=== PATIENT | male | born 1945 | race Caucasian/White ===

== ENCOUNTER 2019-01-16 16:39 | Emergency (ER) | payer MEDICARE, MEDICAID ==
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
--- NOTE | 2019-01-16 17:49 | RADIOLOGY REPORT (SQ) ---
EXAM DESCRIPTION: CT HEAD WITHOUT COMPLETED DATE/TIME: 01/16/2019 5:27 pm REASON FOR STUDY: trauma, fall, pain left side of head COMPARISON: None. TECHNIQUE: Axial images acquired through the brain without intravenous contrast. Images reviewed wi th bone, brain and subdural windows. Additional sagittal and coronal reconstructions were generated. Images stored on PACS. All CT scanners at this facility use dose modulation, iterative reconstruction, and/or weight based d osing when appropriate to reduce radiation dose to as low as reasonably achievable (ALARA). [facility]: Dose Right [facility]: CareDose [facility]: Dose Right [facility]: Teradose 4D [facility]: [employer] RADIATION DOSE: CT Rad equipment meets quality standard of care and radiation dose reduction techniq ues were employed. CTDIvol: 53.2 mGy. DLP: 964 mGy-cm. mGy. LIMITATIONS: None. FINDINGS: VENTRICLES: Normal size and contour. CEREBRUM: No masses. No hemorrhage. No midline shift. No evidence for acute infarction. Normal gra y/white matter differentiation. No areas of low density in the white matter. CEREBELLUM: No masses. No hemorrhage. No alteration of density. No evidence for acute infarction. EXTRAAXIAL SPACES: No fluid collections. No masses. ORBITS AND GLOBE: No intra- or extraconal masses. Normal contour of globe without masses. CALVARIUM: No fracture. PARANASAL SINUSES: No fluid or mucosal thickening. SOFT TISSUES: No mass or hematoma. OTHER: No other significant finding. IMPRESSION: No acute intracranial pathology. EVIDENCE OF ACUTE STROKE: NO. COMMENT: Quality ID # 436: Final reports with documentation of one or more dose reduction techniques (e.g., Automated exposure control, adjustment of the mA and/or kV according to patient size, use of iterative reconstruction technique) TECHNICAL DOCUMENTATION: JOB ID: [id number] [employer]- All Rights Reserved Reading location - IP/workstation name: [email or web address]
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
[2019-01-16 18:05] VITALS: BP 131/79
== END 2019-01-16 18:52 | disposition home or self-care (01) ==
LOC: ER 16:39
DX: S09.90XA Unspecified injury of head, initial encounter (principal); W19.XXXA Unspecified fall, initial encounter; Y92.129 Unspecified place in nursing home as the place of occurrence of the external cause; F17.200 Nicotine dependence, unspecified, uncomplicated; G20 Parkinson's disease
CPT/HCPCS: 70450; 72125; 99284

== ENCOUNTER 2019-02-16 10:27 | Emergency (ER) | payer MEDICARE, MEDICAID ==
[2019-02-16 10:57] LABS: ABSOLUTE EOSINOPHILS # (AUTO) 0.1 10^3/uL (0.0-0.6); ABSOLUTE LYMPHOCYTES (AUTO) 1.4 10^3/uL (0.5-4.7); ABSOLUTE MONOCYTES (AUTO) 0.3 10^3/uL (0.1-1.4); ABSOLUTE NEUT (AUTO) 2.6 10^3/uL (1.7-8.2); BASOPHILS % (AUTO) 0.5 % (0-2); EOSINOPHILS % (AUTO) 1.7 % (0-6); HEMATOCRIT 38.6 % (37.9-51.0); HEMOGLOBIN 13.4 g/dL (13.5-17.0); LYMPHOCYTES % (AUTO) 31.5 % (13-45); MEAN CORPUSCULAR HEMOGLOBIN 33.9 pg (27.0-33.4); MEAN CORPUSCULAR HGB CONC 34.8 g/dL (32.0-36.0); MEAN CORPUSCULAR VOLUME 98 fl (80-97); MONOCYTES % (AUTO) 7.1 % (3-13); PLATELET COUNT 164 10^3/uL (150-450); RED BLOOD COUNT 3.96 10^6/uL (4.35-5.55); RED CELL DISTRIBUTION WIDTH 13.4 % (11.5-14.0); SEGMENTED NEUTROPHILS % (AUTO) 59.2 % (42-78); TOTAL CELLS COUNTED % (AUTO) 100 %; WHITE BLOOD COUNT 4.4 10^3/uL (4.0-10.5)
[2019-02-16 11:09] LABS: APPEARANCE,URINE CLEAR; BILIRUBIN,URINE NEGATIVE (NEGATIVE); COLOR,URINE YELLOW; GLUCOSE, URINE NEGATIVE (NEGATIVE); KETONES,URINE TRACE mg/dL (NEGATIVE); LEUKOCYTE ESTERASE,URINE NEGATIVE (NEGATIVE); NITRITE,URINE NEGATIVE (NEGATIVE); PROTEIN,URINE NEGATIVE (NEGATIVE); URINE SPECIFIC GRAVITY 1.024
--- NOTE | 2019-02-16 11:17 | RADIOLOGY REPORT (SQ) ---
EXAM DESCRIPTION: CT HEAD WITHOUT COMPLETED DATE/TIME: 02/16/2019 11:07 am REASON FOR STUDY: AMS COMPARISON: 01/16/2019 TECHNIQUE: Axial images acquired through the brain without intravenous contrast. Images reviewed wi th bone, brain and subdural windows. Additional sagittal and coronal reconstructions were generated. Images stored on PACS. All CT scanners at this facility use dose modulation, iterative reconstruction, and/or weight based d osing when appropriate to reduce radiation dose to as low as reasonably achievable (ALARA). [facility]: Dose Right [facility]: CareDose [facility]: Dose Right [facility]: Teradose 4D [facility]: [employer] RADIATION DOSE: CT Rad equipment meets quality standard of care and radiation dose reduction techniq ues were employed. CTDIvol: 53.2 mGy. DLP: 1070 mGy-cm. mGy. LIMITATIONS: None. FINDINGS: VENTRICLES: Normal size and contour. CEREBRUM: No masses. No hemorrhage. No midline shift. No evidence for acute infarction. Normal gra y/white matter differentiation. No areas of low density in the white matter. CEREBELLUM: No masses. No hemorrhage. No alteration of density. No evidence for acute infarction. EXTRAAXIAL SPACES: No fluid collections. No masses. ORBITS AND GLOBE: No intra- or extraconal masses. Normal contour of globe without masses. CALVARIUM: No fracture. PARANASAL SINUSES: No fluid or mucosal thickening. SOFT TISSUES: No mass or hematoma. OTHER: No other significant finding. IMPRESSION: NORMAL BRAIN CT WITHOUT CONTRAST. EVIDENCE OF ACUTE STROKE: NO. COMMENT: Quality ID # 436: Final reports with documentation of one or more dose reduction techniques (e.g., Automated exposure control, adjustment of the mA and/or kV according to patient size, use of iterative reconstruction technique) TECHNICAL DOCUMENTATION: JOB ID: [id number] [employer]- All Rights Reserved Reading location - IP/workstation name: [email or web address]
[2019-02-16 11:18] LABS: ALKALINE PHOSPHATASE 69 U/L (38-126); ANION GAP 11 (5-19); ASPARTATE AMINO TRANSFERASE 20 U/L (17-59); BILIRUBIN,TOTAL 0.6 mg/dL (0.2-1.3); BLOOD UREA NITROGEN 16 mg/dL (7-20); CALCIUM 8.9 mg/dL (8.4-10.2); CARBON DIOXIDE 25 mmol/L (22-30); CHLORIDE 105 mmol/L (98-107); GLUCOSE 120 mg/dL (75-110); POTASSIUM 4.2 mmol/L (3.6-5.0); TOTAL PROTEIN 6.8 g/dL (6.3-8.2)
[2019-02-16 11:19] LABS: ACETAMINOPHEN < 10 ug/mL (10-30); ALCOHOL < 10 mg/dL (NONE DETECTED); SALICYLATE < 1.0 mg/dL (2.0-20.0)
[2019-02-16 11:23] LABS: URINE AMPHETAMINES SCREEN NEGATIVE; URINE BARBITURATES SCREEN NEGATIVE; URINE BENZODIAZEPINES SCREEN NEGATIVE; URINE COCAINE SCREEN NEGATIVE; URINE MARIJUANA (THC) SCREEN NEGATIVE; URINE METHADONE SCREEN NEGATIVE; URINE PHENCYCLIDINE SCREEN NEGATIVE
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
--- NOTE | 2019-02-16 20:56 | EKG REPORT ---
SEVERITY:- OTHERWISE NORMAL ECG - SINUS RHYTHM BORDERLINE LEFT AXIS DEVIATION : Confirmed by: Rubia Ruano MD 16-Feb-2019 20:55:00
[2019-02-16] MEDS ORDERED: ZINC OXIDE TP PRN (23:02)
[2019-02-16] MEDS ORDERED: COLD TP PRN (23:02)
[2019-02-16] MEDS ORDERED: LAN TP PRN (23:02)
[2019-02-16] MEDS ORDERED: [UNRECOGNIZED DRUG - OTHER] TP PRN (23:02)
[2019-02-16] MEDS ORDERED: LORAZEPAM 1 MG TABLET PO PRN (23:02)
[2019-02-16] MEDS: ACETAMINOPHEN 325 MG TABLET PO PRN (23:25)
[2019-02-16] MEDS ORDERED: DIVALPROEX SODIUM 500 MG TAB.SR.24H PO ONE (23:30)
[2019-02-16] MEDS ORDERED: CARBIDOPA/LEVODOPA 10-100 MG TABLET PO ONE (23:30)
[2019-02-16] MEDS ORDERED: MELATONIN 3 MG TABLET PO ONE (23:30)
[2019-02-16] MEDS ORDERED: CARBIDOPA/LEVODOPA 10-100 MG TABLET ONE (23:58)
[2019-02-17] MEDS: MEDROXYPROGESTERONE ACET 10 MG TABLET PO SCH (10:16)
[2019-02-17] MEDS: SERTRALINE HCL 50 MG TABLET PO SCH (10:16)
[2019-02-17] MEDS: CARBIDOPA/LEVODOPA 10-100 MG TABLET PO SCH ×3 (10:38→19:02)
[2019-02-17] MEDS: DIVALPROEX SODIUM 125 MG CAP.SPRINK PO SCH ×2 (10:39→17:49)
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
[2019-02-17] MEDS: DIVALPROEX SODIUM 500 MG TAB.SR.24H PO SCH (22:39)
[2019-02-17] MEDS: MELATONIN 3 MG TABLET PO SCH (22:40)
[2019-02-18] MEDS: MEDROXYPROGESTERONE ACET 10 MG TABLET PO SCH (09:51)
[2019-02-18] MEDS: SERTRALINE HCL 50 MG TABLET PO SCH (09:51)
[2019-02-18] MEDS: CARBIDOPA/LEVODOPA 10-100 MG TABLET PO SCH ×3 (09:51→18:56)
[2019-02-18] MEDS: DIVALPROEX SODIUM 125 MG CAP.SPRINK PO SCH ×2 (09:51→18:56)
--- NOTE | 2019-02-18 19:11 | ER Document Report ---
Doctor's Note Notes: 02/18/19 19:10 Rounds: From earlier today. Chart reviewed. Patient interviewed. Patient does not carry on a productive conversation. Vital signs are all normal. Lab studies are all essentially normal. Patient appears to be medically stable for transfer or discharge. Jaja Jones MD
[2019-02-18] MEDS: MELATONIN 3 MG TABLET PO SCH (22:43)
[2019-02-18] MEDS: DIVALPROEX SODIUM 500 MG TAB.SR.24H PO SCH ×2 (22:43→23:30)
[2019-02-19] MEDS: ACETAMINOPHEN 325 MG TABLET PO PRN ×2 (00:55→21:29)
[2019-02-19] MEDS: CARBIDOPA/LEVODOPA 10-100 MG TABLET PO SCH ×3 (09:50→19:04)
[2019-02-19] MEDS: SERTRALINE HCL 50 MG TABLET PO SCH (10:13)
[2019-02-19] MEDS: MEDROXYPROGESTERONE ACET 10 MG TABLET PO SCH (10:13)
[2019-02-19] MEDS: DIVALPROEX SODIUM 125 MG CAP.SPRINK PO SCH ×2 (10:13→19:04)
[2019-02-19] MEDS: MELATONIN 3 MG TABLET PO SCH (22:45)
[2019-02-19] MEDS: DIVALPROEX SODIUM 500 MG TAB.SR.24H PO SCH (22:45)
--- NOTE | 2019-02-20 09:36 | ER Document Report ---
Doctor's Note Notes: 02/20/19 09:36 Patient sent from the nursing care facility secondary to agitation. He was provided ketamine prior to transfer. Patient is currently calm with vital signs are stable. Labs unremarkable. Awaiting social work evaluation and placement.
[2019-02-20] MEDS: CARBIDOPA/LEVODOPA 10-100 MG TABLET PO SCH ×3 (10:22→17:54)
[2019-02-20] MEDS: SERTRALINE HCL 50 MG TABLET PO SCH (10:22)
[2019-02-20] MEDS: MEDROXYPROGESTERONE ACET 10 MG TABLET PO SCH (10:23)
[2019-02-20] MEDS: DIVALPROEX SODIUM 125 MG CAP.SPRINK PO SCH ×2 (10:23→17:54)
[2019-02-20] MEDS: DIVALPROEX SODIUM 500 MG TAB.SR.24H PO SCH (23:17)
[2019-02-20] MEDS: MELATONIN 3 MG TABLET PO SCH (23:17)
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
[2019-02-21] MEDS: MEDROXYPROGESTERONE ACET 10 MG TABLET PO SCH ×2 (09:55→17:33)
[2019-02-21] MEDS: SERTRALINE HCL 50 MG TABLET PO SCH (09:55)
[2019-02-21] MEDS: DIVALPROEX SODIUM 125 MG CAP.SPRINK PO SCH ×4 (09:55→17:32)
[2019-02-21] MEDS: CARBIDOPA/LEVODOPA 10-100 MG TABLET PO SCH ×3 (09:56→17:28)
[2019-02-21] MEDS: ACETAMINOPHEN 325 MG TABLET PO PRN (17:26)
--- NOTE | 2019-02-21 19:09 | ER Document Report ---
Doctor's Note Notes: 02/21/19 19:08 Nursing staff approached me concerning the patient had a choking episode during dinner. He was eating rice and chicken and began choking. Nurses state patient was coughing the whole time. He was able to clear the food he was choking on. Patient states he feels a scratchiness up high in his throat currently. He has been able to tolerate liquids since this episode. Lung sounds are clear. Patient oxygenating well on room air and in no acute respiratory distress. Recommend symptomatic monitoring.
[2019-02-21] MEDS: MELATONIN 3 MG TABLET PO SCH (21:44)
[2019-02-21] MEDS: DIVALPROEX SODIUM 500 MG TAB.SR.24H PO SCH (21:45)
[2019-02-22] MEDS: DIVALPROEX SODIUM 125 MG CAP.SPRINK PO SCH ×2 (10:27→17:18)
[2019-02-22] MEDS: MEDROXYPROGESTERONE ACET 10 MG TABLET PO SCH (10:28)
[2019-02-22] MEDS: CARBIDOPA/LEVODOPA 10-100 MG TABLET PO SCH ×3 (10:33→17:25)
[2019-02-22] MEDS: SERTRALINE HCL 50 MG TABLET PO SCH (10:33)
--- NOTE | 2019-02-22 19:36 | ER Document Report ---
Doctor's Note Notes: 02/22/19 19:35 Rounds: Chart reviewed and patient interviewed earlier today. Patient is stable. Vital signs are all essentially normal. Labs are also essentially normal. Patient appears to be medically stable for transfer or discharge. Jaja Jones MD
[2019-02-22] MEDS: DIVALPROEX SODIUM 500 MG TAB.SR.24H PO SCH (21:29)
[2019-02-22] MEDS: MELATONIN 3 MG TABLET PO SCH (21:30)
[2019-02-23] MEDS: MEDROXYPROGESTERONE ACET 10 MG TABLET PO SCH (10:00)
[2019-02-23] MEDS: DIVALPROEX SODIUM 125 MG CAP.SPRINK PO SCH ×2 (10:00→18:06)
[2019-02-23] MEDS: SERTRALINE HCL 50 MG TABLET PO SCH (10:00)
[2019-02-23] MEDS: CARBIDOPA/LEVODOPA 10-100 MG TABLET PO SCH ×3 (10:01→18:07)
--- NOTE | 2019-02-23 14:02 | ER Document Report ---
Doctor's Note Notes: 02/23/19 14:02 Rounds: Chart reviewed and patient interviewed, the patient does not carry on a conversation or answer questions or follow commands. No change in his condition. Vital signs are all normal. Patient appears to be medically stable for transfer or discharge. Jaja Jones MD
[2019-02-23] MEDS: MELATONIN 3 MG TABLET PO SCH (23:20)
[2019-02-23] MEDS: ACETAMINOPHEN 325 MG TABLET PO PRN (23:21)
[2019-02-23] MEDS: DIVALPROEX SODIUM 500 MG TAB.SR.24H PO SCH (23:22)
[2019-02-24] MEDS: CARBIDOPA/LEVODOPA 10-100 MG TABLET PO SCH ×3 (10:30→19:08)
[2019-02-24] MEDS: SERTRALINE HCL 50 MG TABLET PO SCH (10:46)
[2019-02-24] MEDS: MEDROXYPROGESTERONE ACET 10 MG TABLET PO SCH (10:46)
[2019-02-24] MEDS: DIVALPROEX SODIUM 125 MG CAP.SPRINK PO SCH ×2 (10:46→19:08)
[2019-02-24] MEDS: ACETAMINOPHEN 325 MG TABLET PO PRN (20:57)
[2019-02-24] MEDS: DIVALPROEX SODIUM 500 MG TAB.SR.24H PO SCH (22:54)
[2019-02-24] MEDS: MELATONIN 3 MG TABLET PO SCH (22:55)
[2019-02-25] MEDS: SERTRALINE HCL 50 MG TABLET PO SCH (09:54)
[2019-02-25] MEDS: MEDROXYPROGESTERONE ACET 10 MG TABLET PO SCH (09:54)
[2019-02-25] MEDS: CARBIDOPA/LEVODOPA 10-100 MG TABLET PO SCH ×3 (09:55→17:16)
[2019-02-25] MEDS: DIVALPROEX SODIUM 125 MG CAP.SPRINK PO SCH ×2 (10:14→17:16)
--- NOTE | 2019-02-25 11:11 | ER Document Report ---
Doctor's Note Notes: 02/25/19 11:09 I have evaluated this pt. this am and he has no c/o at this time. He feels all of his needs are being met and his physical exam is normal. He is awaiting disposition per mental health.
[2019-02-25] MEDS: DIVALPROEX SODIUM 500 MG TAB.SR.24H PO SCH (21:23)
[2019-02-25] MEDS: ACETAMINOPHEN 325 MG TABLET PO PRN (21:25)
[2019-02-25] MEDS: MELATONIN 3 MG TABLET PO SCH (21:26)
[2019-02-26] MEDS: DIVALPROEX SODIUM 125 MG CAP.SPRINK PO SCH ×2 (10:36→18:38)
[2019-02-26] MEDS: SERTRALINE HCL 50 MG TABLET PO SCH (10:36)
[2019-02-26] MEDS: MEDROXYPROGESTERONE ACET 10 MG TABLET PO SCH (10:36)
[2019-02-26] MEDS: CARBIDOPA/LEVODOPA 10-100 MG TABLET PO SCH ×3 (10:50→18:36)
--- NOTE | 2019-02-26 11:21 | ER Document Report ---
Doctor's Note Notes: 02/26/19 11:19 I have evaluated this pt. this am and he has no c/o at this time. We will have speech therapy assess this pt. for swallowing issues as I'm being told he needs to have his food cut into smaller pieces to bee able to swallow it. His physical exam is otherwise normal. He is awaiting placement per mental health.
[2019-02-26] MEDS: ACETAMINOPHEN 325 MG TABLET PO PRN (22:41)
[2019-02-26] MEDS: DIVALPROEX SODIUM 500 MG TAB.SR.24H PO SCH (22:42)
[2019-02-26] MEDS: MELATONIN 3 MG TABLET PO SCH (22:42)
--- NOTE | 2019-02-27 10:15 | ER Document Report ---
Doctor's Note Notes: 02/27/19 10:14 Rounds: Chart reviewed. Attempted to talk with patient and he does have more to say now than he did a few days ago when I was on duty. Answers questions appropriately when asked if he is getting enough food. Still difficult to understand exactly what he saying at times. Vital signs are all normal. No new labs to review. Patient is basically a social hold at this time, having been here since the 10th of this month, which is 11 days ago. Patient appears to be medically stable for transfer or discharge. Jaja Jones MD
[2019-02-27] MEDS: SERTRALINE HCL 50 MG TABLET PO SCH (10:45)
[2019-02-27] MEDS: DIVALPROEX SODIUM 125 MG CAP.SPRINK PO SCH ×2 (10:45→19:08)
[2019-02-27] MEDS: CARBIDOPA/LEVODOPA 10-100 MG TABLET PO SCH ×3 (10:45→19:08)
[2019-02-27] MEDS: MEDROXYPROGESTERONE ACET 10 MG TABLET PO SCH (10:45)
[2019-02-27] MEDS: MELATONIN 3 MG TABLET PO SCH (22:04)
[2019-02-27] MEDS: DIVALPROEX SODIUM 500 MG TAB.SR.24H PO SCH (23:05)
--- NOTE | 2019-02-28 09:54 | ER Document Report ---
Doctor's Note Notes: 02/28/19 09:53 Rounds: Chart reviewed. Patient sleeping so not disturbed. Vital signs remained stable. No labs to review. Patient is a social hold having been here since February 16. Looking for placement. Patient appears to be medically stable for transfer or discharge. Jaja Jones MD
[2019-02-28] MEDS: DIVALPROEX SODIUM 125 MG CAP.SPRINK PO SCH ×2 (10:09→18:41)
[2019-02-28] MEDS: SERTRALINE HCL 50 MG TABLET PO SCH (10:13)
[2019-02-28] MEDS: MEDROXYPROGESTERONE ACET 10 MG TABLET PO SCH (10:13)
[2019-02-28] MEDS: CARBIDOPA/LEVODOPA 10-100 MG TABLET PO SCH ×3 (10:15→18:42)
[2019-02-28] MEDS: MELATONIN 3 MG TABLET PO SCH (21:19)
[2019-02-28] MEDS: DIVALPROEX SODIUM 500 MG TAB.SR.24H PO SCH (21:20)
[2019-02-28] MEDS: ACETAMINOPHEN 325 MG TABLET PO PRN (21:33)
--- NOTE | 2019-03-01 10:35 | ER Document Report ---
Doctor's Note Notes: 03/01/19 10:30 I have evaluated this pt. this am and he has no c/o at this time. he feels all of his needs are being met and his physical exam is normal. His niece is in the room with him. He is awaiting placement per mental health.
[2019-03-01] MEDS: DIVALPROEX SODIUM 125 MG CAP.SPRINK PO SCH ×2 (10:45→18:24)
[2019-03-01] MEDS: MEDROXYPROGESTERONE ACET 10 MG TABLET PO SCH (10:51)
[2019-03-01] MEDS: CARBIDOPA/LEVODOPA 10-100 MG TABLET PO SCH ×3 (10:51→18:24)
[2019-03-01] MEDS: SERTRALINE HCL 50 MG TABLET PO SCH (10:51)
[2019-03-01] MEDS: MELATONIN 3 MG TABLET PO SCH (22:27)
[2019-03-01] MEDS: DIVALPROEX SODIUM 500 MG TAB.SR.24H PO SCH (22:42)
[2019-03-02] MEDS: CARBIDOPA/LEVODOPA 10-100 MG TABLET PO SCH ×3 (09:44→17:35)
[2019-03-02] MEDS: SERTRALINE HCL 50 MG TABLET PO SCH (09:44)
[2019-03-02] MEDS: MEDROXYPROGESTERONE ACET 10 MG TABLET PO SCH (09:44)
[2019-03-02] MEDS: DIVALPROEX SODIUM 125 MG CAP.SPRINK PO SCH ×2 (10:01→17:35)
--- NOTE | 2019-03-02 11:40 | ER Document Report ---
Doctor's Note Notes: 03/02/19 11:39 Rounds: Chart reviewed and patient sleeping so not interrupted. Patient has been here in this emergency department since February 16. He is a social hold at this time. His vital signs are all normal. Patient appears to be medically stable for transfer or discharge. Jaja Jones MD
[2019-03-02] MEDS: DIVALPROEX SODIUM 500 MG TAB.SR.24H PO SCH (21:21)
[2019-03-02] MEDS: MELATONIN 3 MG TABLET PO SCH (21:22)
--- NOTE | 2019-03-03 09:37 | ER Document Report ---
Doctor's Note Notes: 03/03/19 09:37 73-year-old male who is awaiting social placement. Vital signs are stable. We will repeat the patient's CBC and chemistry as requested by the social service coordinator to help with placement. Vital signs are stable. No acute complaints.
[2019-03-03] MEDS: DIVALPROEX SODIUM 125 MG CAP.SPRINK PO SCH ×2 (09:52→17:45)
[2019-03-03] MEDS: CARBIDOPA/LEVODOPA 10-100 MG TABLET PO SCH ×3 (09:56→18:46)
[2019-03-03] MEDS: SERTRALINE HCL 50 MG TABLET PO SCH (10:06)
[2019-03-03] MEDS: MEDROXYPROGESTERONE ACET 10 MG TABLET PO SCH (10:06)
[2019-03-03 12:23] LABS: ABSOLUTE EOSINOPHILS # (AUTO) 0.1 10^3/uL (0.0-0.6); ABSOLUTE LYMPHOCYTES (AUTO) 1.5 10^3/uL (0.5-4.7); ABSOLUTE MONOCYTES (AUTO) 0.3 10^3/uL (0.1-1.4); ABSOLUTE NEUT (AUTO) 3.9 10^3/uL (1.7-8.2); BASOPHILS % (AUTO) 0.3 % (0-2); EOSINOPHILS % (AUTO) 1.7 % (0-6); HEMATOCRIT 38.9 % (37.9-51.0); HEMOGLOBIN 13.4 g/dL (13.5-17.0); LYMPHOCYTES % (AUTO) 25.4 % (13-45); MEAN CORPUSCULAR HEMOGLOBIN 33.6 pg (27.0-33.4); MEAN CORPUSCULAR HGB CONC 34.5 g/dL (32.0-36.0); MEAN CORPUSCULAR VOLUME 97 fl (80-97); MONOCYTES % (AUTO) 5.2 % (3-13); PLATELET COUNT 144 10^3/uL (150-450); RED CELL DISTRIBUTION WIDTH 13.6 % (11.5-14.0); SEGMENTED NEUTROPHILS % (AUTO) 67.4 % (42-78); TOTAL CELLS COUNTED % (AUTO) 100 %; WHITE BLOOD COUNT 5.8 10^3/uL (4.0-10.5)
[2019-03-03 12:46] LABS: ANION GAP 9 (5-19); BLOOD UREA NITROGEN 21 mg/dL (7-20); CALCIUM 9.4 mg/dL (8.4-10.2); CARBON DIOXIDE 26 mmol/L (22-30); CHLORIDE 104 mmol/L (98-107); GLUCOSE 110 mg/dL (75-110); POTASSIUM 4.9 mmol/L (3.6-5.0)
[2019-03-03] MEDS: DIVALPROEX SODIUM 500 MG TAB.SR.24H PO SCH (21:14)
[2019-03-03] MEDS: MELATONIN 3 MG TABLET PO SCH (21:14)
[2019-03-04] MEDS: DIVALPROEX SODIUM 125 MG CAP.SPRINK PO SCH ×2 (09:09→18:37)
[2019-03-04] MEDS: SERTRALINE HCL 50 MG TABLET PO SCH (09:10)
[2019-03-04] MEDS: MEDROXYPROGESTERONE ACET 10 MG TABLET PO SCH (09:10)
[2019-03-04] MEDS: CARBIDOPA/LEVODOPA 10-100 MG TABLET PO SCH ×3 (09:11→18:42)
--- NOTE | 2019-03-04 19:10 | ER Document Report ---
Doctor's Note Notes: 03/04/19 19:08 73 yr old male who is here for a social hold, vital signs are stable. Patient is medically stable. Examination was normal. Repeat labs appear to be baseline. Planes by nursing staff.
[2019-03-04] MEDS: MELATONIN 3 MG TABLET PO SCH (22:11)
[2019-03-04] MEDS: DIVALPROEX SODIUM 500 MG TAB.SR.24H PO SCH (22:13)
--- NOTE | 2019-03-05 10:15 | ER Document Report ---
Doctor's Note Notes: 03/05/19 10:14 I have evaluated this pt. this am and he has no c/o at this time. He feels all of his needs are being met and his physical exam is normal. He is awaiting placement per mental health.
[2019-03-05] MEDS: SERTRALINE HCL 50 MG TABLET PO SCH (10:17)
[2019-03-05] MEDS: CARBIDOPA/LEVODOPA 10-100 MG TABLET PO SCH ×3 (10:17→18:24)
[2019-03-05] MEDS: DIVALPROEX SODIUM 125 MG CAP.SPRINK PO SCH ×2 (10:19→18:28)
[2019-03-05] MEDS: MEDROXYPROGESTERONE ACET 10 MG TABLET PO SCH (10:19)
[2019-03-05] MEDS: DIVALPROEX SODIUM 500 MG TAB.SR.24H PO SCH (21:38)
[2019-03-05] MEDS: MELATONIN 3 MG TABLET PO SCH (21:40)
[2019-03-06] MEDS: MEDROXYPROGESTERONE ACET 10 MG TABLET PO SCH (09:43)
[2019-03-06] MEDS: CARBIDOPA/LEVODOPA 10-100 MG TABLET PO SCH ×4 (09:43→18:56)
[2019-03-06] MEDS: SERTRALINE HCL 50 MG TABLET PO SCH ×2 (09:43→09:50)
[2019-03-06] MEDS: DIVALPROEX SODIUM 125 MG CAP.SPRINK PO SCH ×3 (09:43→18:59)
[2019-03-06] MEDS: DIVALPROEX SODIUM 500 MG TAB.SR.24H PO SCH (21:55)
[2019-03-06] MEDS: MELATONIN 3 MG TABLET PO SCH (22:26)
[2019-03-07] MEDS: MEDROXYPROGESTERONE ACET 10 MG TABLET PO SCH ×2 (09:27→09:30)
[2019-03-07] MEDS: CARBIDOPA/LEVODOPA 10-100 MG TABLET PO SCH ×3 (09:27→17:08)
[2019-03-07] MEDS: DIVALPROEX SODIUM 125 MG CAP.SPRINK PO SCH ×2 (09:27→17:08)
[2019-03-07] MEDS: SERTRALINE HCL 50 MG TABLET PO SCH (09:27)
--- NOTE | 2019-03-07 18:51 | ER Document Report ---
Doctor's Note Notes: 03/07/19 18:50 Patient remains in the emergency department as a social hold. Only complaint is that we are not giving him his daily cinnamon capsule. This is not something we carry in this hospital. Otherwise patient has no complaints. Patient will remain as a social hold. Environmental therapy has been ordered to make sure that he does continue to ambulate and does not get significantly deconditioned. GENERAL: Alert, interacts well. No acute distress. HEAD: Normocephalic, atraumatic EYES: Pupils equal, round and reactive to light, extraocular movements intact. ENT: Oral mucosa moist, tongue midline. NECK: Full range of motion, supple, trachea midline. LUNGS: no respiratory distress. Ear to auscultation bilaterally Heart: Giller rate and rhythm with no murmurs gallops or rubs. EXTREMITIES: Moves all 4 extremities spontaneously, no edema. No cyanosis. NEUROLOGICAL: Alert, normal speech. PSYCH: Normal mood, normal affect. SKIN: Warm, Dry, normal turgor
[2019-03-07] MEDS: DIVALPROEX SODIUM 500 MG TAB.SR.24H PO SCH (21:51)
[2019-03-08] MEDS: MELATONIN 3 MG TABLET PO SCH ×2 (01:38→21:33)
[2019-03-08] MEDS: MEDROXYPROGESTERONE ACET 10 MG TABLET PO SCH (09:36)
[2019-03-08] MEDS: SERTRALINE HCL 50 MG TABLET PO SCH (09:36)
[2019-03-08] MEDS: DIVALPROEX SODIUM 125 MG CAP.SPRINK PO SCH ×2 (09:37→18:16)
[2019-03-08] MEDS: CARBIDOPA/LEVODOPA 10-100 MG TABLET PO SCH ×3 (09:41→18:17)
--- NOTE | 2019-03-08 18:51 | ER Document Report ---
Doctor's Note Notes: 03/08/19 18:48 At this time the patient is sitting semi-upright in his bed watching TV. He does not have any specific complaints other than lifting his arms and hands up telling me he wants to be able to move. My understanding from reviewing the records is that he is still waiting for long-term placement, however the last case operator note was from 03/03/2019 and that indicated they were waiting to hear back from [facility].
[2019-03-08] MEDS: DIVALPROEX SODIUM 500 MG TAB.SR.24H PO SCH (21:32)
[2019-03-09] MEDS: CARBIDOPA/LEVODOPA 10-100 MG TABLET PO SCH ×3 (10:09→18:56)
[2019-03-09] MEDS: MEDROXYPROGESTERONE ACET 10 MG TABLET PO SCH (10:17)
[2019-03-09] MEDS: SERTRALINE HCL 50 MG TABLET PO SCH (10:17)
[2019-03-09] MEDS: DIVALPROEX SODIUM 125 MG CAP.SPRINK PO SCH ×2 (10:17→18:57)
--- NOTE | 2019-03-09 14:32 | ER Document Report ---
Doctor's Note Notes: 03/09/19 14:30 Patient states that he feels okay. Has been resting in bed. PHYSICAL EXAMINATION: GENERAL: Appears chronically ill, no acute distress. HEAD: Normocephalic, atraumatic. LUNGS: Equal breath sounds bilaterally and clear to auscultation. No wheezes rales or rhonchi. CARDIOVASCULAR: S1-S2, regular rate, regular rhythm. Radial pulses 2+, normal. ABDOMEN: Normoactive bowel sounds. Soft, nontender, no guarding, no rebound tenderness, and no masses palpated. PSYCH: Normal mood, normal affect. Plan discussed with LISSY Murdock, case packer. Patient is waiting for placement.
[2019-03-09] MEDS: MELATONIN 3 MG TABLET PO SCH (22:07)
[2019-03-09] MEDS: DIVALPROEX SODIUM 500 MG TAB.SR.24H PO SCH (22:13)
[2019-03-10] MEDS: DIVALPROEX SODIUM 125 MG CAP.SPRINK PO SCH ×2 (09:57→18:22)
[2019-03-10] MEDS: CARBIDOPA/LEVODOPA 10-100 MG TABLET PO SCH ×3 (09:58→18:19)
[2019-03-10] MEDS: SERTRALINE HCL 50 MG TABLET PO SCH (09:59)
[2019-03-10] MEDS: MEDROXYPROGESTERONE ACET 10 MG TABLET PO SCH (09:59)
--- NOTE | 2019-03-10 21:58 | ER Document Report ---
Doctor's Note Notes: 03/10/19 18:30 Patient states that he feels okay. Has been resting in bed. PHYSICAL EXAMINATION: GENERAL: Appears chronically ill, no acute distress. HEAD: Normocephalic, atraumatic. LUNGS: Equal breath sounds bilaterally and clear to auscultation. No wheezes rales or rhonchi. CARDIOVASCULAR: S1-S2, regular rate, regular rhythm. Radial pulses 2+, normal. ABDOMEN: Normoactive bowel sounds. Soft, nontender, no guarding, no rebound tenderness, and no masses palpated. PSYCH: Normal mood, normal affect. SKIN: Blanchable redness noted to coccyx. Allyven dressing place to coccyx RN and myself. Plan discussed with LISSY Murdock, patient case coordinator. Patient is still waiting for placement. Nurse has reported to me that the patient has been refusing his medications. I had recommended that she crush the medications and put them in his applesauce. According to the nurse, the patient still refused his medication.
[2019-03-10] MEDS: DIVALPROEX SODIUM 500 MG TAB.SR.24H PO SCH (22:44)
[2019-03-10] MEDS: MELATONIN 3 MG TABLET PO SCH (22:44)
[2019-03-11] MEDS: MELATONIN 3 MG TABLET PO SCH ×2 (02:49→21:34)
[2019-03-11] MEDS: CARBIDOPA/LEVODOPA 10-100 MG TABLET PO SCH ×3 (09:52→18:15)
[2019-03-11] MEDS: MEDROXYPROGESTERONE ACET 10 MG TABLET PO SCH (09:52)
[2019-03-11] MEDS: DIVALPROEX SODIUM 125 MG CAP.SPRINK PO SCH ×2 (09:52→18:50)
[2019-03-11] MEDS: SERTRALINE HCL 50 MG TABLET PO SCH (09:53)
--- NOTE | 2019-03-11 12:55 | ER Document Report ---
Doctor's Note Notes: 03/11/19 12:54 Vital signs stable, no distress. Nurse's notes reviewed. Patient is not having any complaints at this time. Still awaiting for social hold. Have been in conversation with Mathieu Aguilar, social service technician, who is still awaiting for placement. Patient is up in chair, responding to questions, no concerns at this time. PHYSICAL EXAMINATION: GENERAL: Well-appearing, well-nourished and in no acute distress. HEAD: Atraumatic, normocephalic. EYES: Pupils equal round and reactive to light, extraocular movements intact, sclera anicteric, conjunctiva are normal. NECK: Normal range of motion, supple without lymphadenopathy LUNGS: Breath sounds clear to auscultation bilaterally and equal. No wheezes rales or rhonchi. HEART: Regular rate and rhythm without murmurs Musculoskeletal: Normal range of motion, no pitting or edema. No cyanosis. NEUROLOGICAL: Cranial nerves grossly intact. Normal speech, normal gait. Normal sensory, motor exams PSYCH: Normal mood, normal affect. SKIN: Warm, Dry, normal turgor, no rashes or lesions noted.
[2019-03-11] MEDS: DIVALPROEX SODIUM 500 MG TAB.SR.24H PO SCH (21:59)
[2019-03-12] MEDS: DIVALPROEX SODIUM 125 MG CAP.SPRINK PO SCH ×3 (10:03→18:50)
[2019-03-12] MEDS: MEDROXYPROGESTERONE ACET 10 MG TABLET PO SCH ×2 (10:03→10:21)
[2019-03-12] MEDS: CARBIDOPA/LEVODOPA 10-100 MG TABLET PO SCH ×3 (10:04→18:46)
[2019-03-12] MEDS: SERTRALINE HCL 50 MG TABLET PO SCH ×2 (10:06→10:21)
--- NOTE | 2019-03-12 18:50 | ER Document Report ---
Doctor's Note Notes: 03/12/19 18:15 PHYSICAL EXAMINATION: GENERAL: Well-appearing and in no acute distress. HEAD: Atraumatic, normocephalic. EYES: sclera anicteric, conjunctiva are normal. ENT: nares patent, oropharynx clear without exudates. Moist mucous membranes. NECK: Normal range of motion, supple without lymphadenopathy LUNGS: CTAB and equal. No wheezes rales or rhonchi. HEART: Regular rate and rhythm without murmurs ABDOMEN: Soft, no tenderness. No guarding, no rebound EXTREMITIES: Normal range of motion, no pitting edema. No cyanosis. BACK: No midline tenderness, no CVA tenderness. NEUROLOGICAL: Cranial nerves grossly intact. Normal speech. PSYCH: Flat affect SKIN: Warm, Dry, normal turgor, no rashes or lesions noted Patient resting quietly on stretcher. Patient denies any complaints at this time. Patient's only concern is that he feels as though his medication is at a decreased dose from where it should be. Patient states that he has been working with physical therapy while here in the hospital. Patient appears clear for discharge at this time. Patient is awaiting placement as he previously was a resident of the [facility] and they have discharged him from their care. Discharge planning states that patient has been a challenge to place due to his history of aggressive behavior. Patient presently calm and cooperative.
--- NOTE | 2019-03-12 20:47 | ER Document Report ---
Doctor's Note Notes: 03/12/19 20:45 Chart reviewed, Patient sleeping calmly. Not awaked. No distress. Patient has been here in the ED since 02/16 as a social hold with history of Diabetes, Parkinson's and aggressive behavior so he was discharged from the [facility]. Per nurse patient is refusing sone of his medications. No labs done since 03/03 no urine done since 02/16 no weight down since admission. We will plan on repeat labs in the morning with urine and weight. If patient awakens during the night I will evaluate him more fully. GENERAL: Sleeping well-appearing and in no acute distress HEAD: Atraumatic, normocephalic. ENT: nares patent, NECK: Normal range of motion, supple LUNGS: Respiratory rate even unlabored HEART: Regular rate 03/13/19 08:06 patient slept well, report given to Dung hays
[2019-03-12] MEDS: MELATONIN 3 MG TABLET PO SCH (22:49)
[2019-03-12] MEDS: DIVALPROEX SODIUM 500 MG TAB.SR.24H PO SCH (22:49)
[2019-03-13] MEDS: CARBIDOPA/LEVODOPA 10-100 MG TABLET PO SCH ×3 (09:50→18:22)
[2019-03-13] MEDS: DIVALPROEX SODIUM 125 MG CAP.SPRINK PO SCH ×2 (09:53→18:23)
[2019-03-13] MEDS: MEDROXYPROGESTERONE ACET 10 MG TABLET PO SCH (09:53)
[2019-03-13] MEDS: SERTRALINE HCL 50 MG TABLET PO SCH (09:53)
--- NOTE | 2019-03-13 12:03 | ER Document Report ---
Doctor's Note Notes: 03/13/19 12:00 Chart reviewed, Patient sleeping calmly. Did not wake. No distress. Patient has been here in the ED since 02/16 as a social hold with history of diabetes, Parkinson's disease, and aggressive behavior so he was discharged from the [facility]. No labs done since 03/03 no urine done since 02/16. Weight done this morning, 70 kg. Will order a.m. labs. ROS deferred due to patient sleeping. PHYSICAL EXAMINATION: Reviewed vital signs and charting by RN GENERAL: Sleeping comfortably. No acute distress. HEAD: Normocephalic, atraumatic. ENT: Oral mucosa moist LUNGS: No respiratory distress. HEART: Regular rate and rhythm. No murmur PSYCH: Sleeping, deferred SKIN: Warm, dry, normal turgor. No rashes or lesions noted.
[2019-03-13] MEDS: DIVALPROEX SODIUM 500 MG TAB.SR.24H PO SCH (22:10)
[2019-03-13] MEDS: MELATONIN 3 MG TABLET PO SCH (22:10)
--- NOTE | 2019-03-14 01:55 | ER Document Report ---
Doctor's Note Notes: 03/14/19 01:54 Chart reviewed patient sleeping GENERAL: sleeping, no acute distress HEAD: Atraumatic, normocephalic. LUNGS: RR even unlabored EXTREMITIES: Normal range of motion,
[2019-03-14 07:16] LABS: ABSOLUTE EOSINOPHILS # (AUTO) 0.1 10^3/uL (0.0-0.6); ABSOLUTE LYMPHOCYTES (AUTO) 1.6 10^3/uL (0.5-4.7); ABSOLUTE MONOCYTES (AUTO) 0.3 10^3/uL (0.1-1.4); BASOPHILS % (AUTO) 0.5 % (0-2); EOSINOPHILS % (AUTO) 2.4 % (0-6); HEMATOCRIT 39.2 % (37.9-51.0); HEMOGLOBIN 13.3 g/dL (13.5-17.0); LYMPHOCYTES % (AUTO) 31.9 % (13-45); MEAN CORPUSCULAR HEMOGLOBIN 33.1 pg (27.0-33.4); MEAN CORPUSCULAR HGB CONC 33.9 g/dL (32.0-36.0); MEAN CORPUSCULAR VOLUME 98 fl (80-97); MONOCYTES % (AUTO) 6.6 % (3-13); PLATELET COUNT 138 10^3/uL (150-450); RED BLOOD COUNT 4.02 10^6/uL (4.35-5.55); RED CELL DISTRIBUTION WIDTH 13.3 % (11.5-14.0); SEGMENTED NEUTROPHILS % (AUTO) 58.6 % (42-78); TOTAL CELLS COUNTED % (AUTO) 100 %
[2019-03-14 07:36] LABS: ALKALINE PHOSPHATASE 84 U/L (38-126); ANION GAP 11 (5-19); ASPARTATE AMINO TRANSFERASE 21 U/L (17-59); BILIRUBIN,DIRECT 0.1 mg/dL (0.0-0.4); BILIRUBIN,TOTAL 0.6 mg/dL (0.2-1.3); BLOOD UREA NITROGEN 18 mg/dL (7-20); CALCIUM 9.2 mg/dL (8.4-10.2); CARBON DIOXIDE 23 mmol/L (22-30); CHLORIDE 105 mmol/L (98-107); GLUCOSE 104 mg/dL (75-110); POTASSIUM 4.2 mmol/L (3.6-5.0)
[2019-03-14 09:33] LABS: APPEARANCE,URINE CLEAR; BILIRUBIN,URINE NEGATIVE (NEGATIVE); COLOR,URINE YELLOW; GLUCOSE, URINE NEGATIVE (NEGATIVE); KETONES,URINE NEGATIVE (NEGATIVE); LEUKOCYTE ESTERASE,URINE NEGATIVE (NEGATIVE); NITRITE,URINE NEGATIVE (NEGATIVE); PROTEIN,URINE NEGATIVE (NEGATIVE); URINE SPECIFIC GRAVITY 1.023; UROBILINOGEN,URINE NEGATIVE mg/dL (<2.0)
[2019-03-14] MEDS: CARBIDOPA/LEVODOPA 10-100 MG TABLET PO SCH ×3 (10:03→17:34)
[2019-03-14] MEDS: MEDROXYPROGESTERONE ACET 10 MG TABLET PO SCH (10:05)
[2019-03-14] MEDS: DIVALPROEX SODIUM 125 MG CAP.SPRINK PO SCH ×2 (10:05→17:36)
[2019-03-14] MEDS: SERTRALINE HCL 50 MG TABLET PO SCH (10:05)
--- NOTE | 2019-03-14 10:50 | ER Document Report ---
Doctor's Note Notes: 03/14/19 10:49 Patient awake and sitting in the bed in no acute distress. Patient interaction better than yesterday as he responded to questions. Patient states he has no pain. Chart review completed and baseline lab work done this morning and overall unremarkable. Patient with a flat affect and depressed mood. Still awaiting placement.
--- NOTE | 2019-03-14 21:35 | ER Document Report ---
Doctor's Note Notes: 03/14/19 21:35 Received report patient resting quietly at this time. 03/15/19 07:06 Patient rested well all night
[2019-03-14] MEDS: DIVALPROEX SODIUM 500 MG TAB.SR.24H PO SCH (22:42)
[2019-03-14] MEDS: MELATONIN 3 MG TABLET PO SCH (22:43)
[2019-03-15] MEDS: CARBIDOPA/LEVODOPA 10-100 MG TABLET PO SCH ×3 (10:18→19:02)
[2019-03-15] MEDS: DIVALPROEX SODIUM 125 MG CAP.SPRINK PO SCH ×2 (10:19→18:59)
[2019-03-15] MEDS: SERTRALINE HCL 50 MG TABLET PO SCH (10:20)
[2019-03-15] MEDS: MEDROXYPROGESTERONE ACET 10 MG TABLET PO SCH (10:20)
--- NOTE | 2019-03-15 18:26 | ER Document Report ---
Doctor's Note Notes: 03/15/19 18:25 Physical therapy did come and evaluate the patient. They reported that he speaks both Wolof and Luxembourger and responded better when he was spoken to in Wolof. They have gotten the patient up multiple times today. Patient concerned that he has not received his Parkinson medication. I did verify this per the med reconciliation. Patient no acute distress. We will continue to monitor.
[2019-03-15] MEDS: DIVALPROEX SODIUM 500 MG TAB.SR.24H PO SCH (22:04)
[2019-03-15] MEDS: MELATONIN 3 MG TABLET PO SCH (22:04)
[2019-03-16] MEDS: DIVALPROEX SODIUM 125 MG CAP.SPRINK PO SCH ×2 (09:45→17:58)
[2019-03-16] MEDS: CARBIDOPA/LEVODOPA 10-100 MG TABLET PO SCH ×3 (09:45→17:59)
[2019-03-16] MEDS: MEDROXYPROGESTERONE ACET 10 MG TABLET PO SCH (09:45)
[2019-03-16] MEDS: SERTRALINE HCL 50 MG TABLET PO SCH (09:46)
--- NOTE | 2019-03-16 11:38 | ER Document Report ---
Doctor's Note Notes: 03/16/19 11:39 Patient is resting comfortably in hospital bed. Patient denies any needs or concerns at this time. Patient denies pain. Patient no acute distress. [facility] was here in the emergency department for patient evaluation and review of the chart as they may accept placement. This is pending at this time.
[2019-03-16] MEDS: MELATONIN 3 MG TABLET PO SCH (21:48)
[2019-03-16] MEDS: DIVALPROEX SODIUM 500 MG TAB.SR.24H PO SCH (21:57)
[2019-03-17] MEDS: CARBIDOPA/LEVODOPA 10-100 MG TABLET PO SCH ×3 (10:00→19:10)
[2019-03-17] MEDS: DIVALPROEX SODIUM 125 MG CAP.SPRINK PO SCH ×2 (10:00→19:09)
[2019-03-17] MEDS: SERTRALINE HCL 50 MG TABLET PO SCH (10:08)
[2019-03-17] MEDS: MEDROXYPROGESTERONE ACET 10 MG TABLET PO SCH (10:12)
--- NOTE | 2019-03-17 17:35 | ER Document Report ---
Doctor's Note Notes: 03/17/19 17:30 Chart reviewed, patient was calm all day. He was transferred from bed up to the chair. He was cooperative. No change in medical care. According to clinical laboratory manager, Mathieu Aguilar, they are trying to find placement for him but have been unable to obtain placement for him due to his past behavior. Apparently patient is known for being a very aggressive and inappropriate.. She reports his will not take him at home because he has been aggressive/abusive with her. Patient has history of Parkinson's and dementia. PHYSICAL EXAMINATION: GENERAL: Calm, nontoxic looking HEAD: Atraumatic, normocephalic. EYES: sclera anicteric, conjunctiva are normal. ENT: nares patent, . Moist mucous membranes. NECK: Normal range of motion, supple without lymphadenopathy LUNGS: CTAB and equal. No wheezes rales or rhonchi. HEART: Regular rate and rhythm without murmurs ABDOMEN: Soft, no tenderness. No guarding, no rebound EXTREMITIES: Normal range of motion, no pitting edema. No cyanosis. NEUROLOGICAL: Cranial nerves grossly intact. PSYCH: Normal mood, normal affect. SKIN: Warm, Dry, normal turgor, no rashes or lesions noted, no sore 03/17/19 20:23 Patient resting quietly no issues today and was calm. Report given to the rachel huerta
[2019-03-17] MEDS: MELATONIN 3 MG TABLET PO SCH (21:56)
[2019-03-17] MEDS: DIVALPROEX SODIUM 500 MG TAB.SR.24H PO SCH (21:56)
[2019-03-18] MEDS: CARBIDOPA/LEVODOPA 10-100 MG TABLET PO SCH ×3 (09:01→17:48)
[2019-03-18] MEDS: MEDROXYPROGESTERONE ACET 10 MG TABLET PO SCH (09:01)
[2019-03-18] MEDS: SERTRALINE HCL 50 MG TABLET PO SCH (09:02)
[2019-03-18] MEDS: DIVALPROEX SODIUM 125 MG CAP.SPRINK PO SCH ×2 (09:02→17:48)
--- NOTE | 2019-03-18 17:22 | ER Document Report ---
Doctor's Note Notes: 03/18/19 17:21 73-year-old male here for social hold. Nurse's notes, providers notes, mental health notes reviewed. Labs reviewed. Rogers reviewed, patient was calm all day. He was transferred from bed up to the chair. He was cooperative. No change in medical care. Patient denies any issues at this time. Physical ex amination was unremarkable. We will continue to monitor
[2019-03-18] MEDS: MELATONIN 3 MG TABLET PO SCH (22:54)
[2019-03-18] MEDS: DIVALPROEX SODIUM 500 MG TAB.SR.24H PO SCH (22:55)
[2019-03-19] MEDS: SERTRALINE HCL 50 MG TABLET PO SCH (11:23)
[2019-03-19] MEDS: DIVALPROEX SODIUM 125 MG CAP.SPRINK PO SCH ×2 (11:23→23:48)
[2019-03-19] MEDS: MEDROXYPROGESTERONE ACET 10 MG TABLET PO SCH (11:23)
--- NOTE | 2019-03-19 11:56 | ER Document Report ---
Doctor's Note Notes: 03/19/19 11:54 PHYSICAL EXAMINATION: GENERAL: Well-appearing and in no acute distress. HEAD: Atraumatic, normocephalic. EYES: extraocular movements intact, sclera anicteric, conjunctiva are normal. ENT: nares patent, Moist mucous membranes. NECK: Normal range of motion, supple without lymphadenopathy LUNGS: CTAB and equal. No wheezes rales or rhonchi. HEART: Regular rate and rhythm without murmurs ABDOMEN: Soft, no tenderness. No guarding, no rebound EXTREMITIES: Normal range of motion, no pitting edema. No cyanosis. BACK: No midline tenderness, no CVA tenderness NEUROLOGICAL: Cranial nerves grossly intact. Normal speech. PSYCH: Normal mood, normal affect. SKIN: Warm, Dry, normal turgor, no rashes or lesions noted Patient's nursing notes, vital signs and previous diagnostic evaluation reviewed. Patient is here as a social hold waiting transfer to an accepting facility. Review of social work note states that they are still in the process of finding placement, although have been having difficulty due to his previous behavior and underlying medical history.
[2019-03-19] MEDS ORDERED: CARBIDOPA/LEVODOPA 10-100 MG TABLET PO SCH (12:00)
[2019-03-19] MEDS: CARBIDOPA/LEVODOPA 10-100 MG TABLET PO SCH ×2 (13:52→23:48)
[2019-03-19] MEDS ORDERED: DOCUSATE SODIUM 100 MG CAPSULE PO ONE (22:16)
[2019-03-19] MEDS: DIVALPROEX SODIUM 500 MG TAB.SR.24H PO SCH (23:47)
[2019-03-19] MEDS: MELATONIN 3 MG TABLET PO SCH (23:47)
[2019-03-20] MEDS: SERTRALINE HCL 50 MG TABLET PO SCH (10:17)
[2019-03-20] MEDS: DIVALPROEX SODIUM 125 MG CAP.SPRINK PO SCH ×2 (10:17→21:55)
[2019-03-20] MEDS: CARBIDOPA/LEVODOPA 10-100 MG TABLET PO SCH ×3 (10:17→21:56)
[2019-03-20] MEDS: MEDROXYPROGESTERONE ACET 10 MG TABLET PO SCH (10:17)
[2019-03-20] MEDS ORDERED: ACETAMINOPHEN 325 MG TABLET PO ONE ×2 (10:56→21:48)
--- NOTE | 2019-03-20 11:16 | ER Document Report ---
Doctor's Note Notes: 03/20/19 12:45 S: Patient states "my legs hurt". Denies any SI, HI, Hallucinations, Here for social hold for placement. He has dementia. Mathieu Aguilar from ED case management is working on placement. There has been difficulty for placement due to past aggressive behavior. not able to take care of patient at home due to this behavior. O: Constitutional: Alert, sitting in bed, eating lunch. In no acute distress Cardiac: Regular rate and rhythm. No murmurs, rubs, gallops. Respiratory: No respiratory distress. No wheezes, rhonchi, rales. Lungs are clear to auscultation bilaterally Abdomen: Nontender, nondistended, soft. Normal bowel sounds MS: Nontender to palpation over the bilateral hips, knees, ankles, feet. There is no skin breakdown to the legs. There is no tenderness to palpation over the calves. There is no edema or erythema. Psych: Pleasantly confused. No SI, HI, hallucinations. Slightly poor eye contact. Neuro: Cranial nerves II through XII are intact. No pronator drift. No leg drift. Oriented to person Skin: No rash, no skin breakdown, no diaphoresis A/P: Patient here on social hold awaiting placement for his dementia. He is doing well today. Will write for Tylenol for his leg pain. Will continue to monitor.
[2019-03-20] MEDS: MELATONIN 3 MG TABLET PO SCH (21:55)
[2019-03-20] MEDS: DIVALPROEX SODIUM 500 MG TAB.SR.24H PO SCH (21:55)
[2019-03-21] MEDS: CARBIDOPA/LEVODOPA 10-100 MG TABLET PO SCH ×3 (06:46→21:43)
[2019-03-21] MEDS: DIVALPROEX SODIUM 125 MG CAP.SPRINK PO SCH ×2 (11:25→22:40)
[2019-03-21] MEDS: SERTRALINE HCL 50 MG TABLET PO SCH (11:26)
[2019-03-21] MEDS: MEDROXYPROGESTERONE ACET 10 MG TABLET PO SCH (11:26)
[2019-03-21] MEDS ORDERED: ACETAMINOPHEN 325 MG TABLET PO ONE ×2 (13:43→21:34)
--- NOTE | 2019-03-21 13:55 | ER Document Report ---
Doctor's Note Notes: 03/21/19 13:42 S: 73-year-old male on social hold here and awaiting placement. He has dementia and he cannot be taken care of at home. Apparently he gets aggressive behavior with his dementia. He is being managed by social work and they are working on placement. He states that he is continuing to have leg pain this morning. He complained of this yesterday and he was given Tylenol. However he continues to have leg pain and he has been predominantly immobilized since being held in the emergency department in the bed. He does get some physical therapy and Occupational Therapy during the week but he is not significantly mobile. We will send for Dopplers to evaluate for possible DVTs. We will also give Tylenol. He is not on a blood thinner. He is not on daily aspirin. O: Constitutional: Alert, in no acute distress Cardiac: Regular rate and rhythm. No murmurs rubs or gallops Respiratory: Lungs are clear to auscultation bilaterally. No wheezes rhonchi or rales Abdomen: Soft, nontender, nondistended. Normal bowel sounds Skin: No rash, no diaphoresis Neuro: Cranial nerves II through XII are intact. No pronator drift. No leg drift. Patient is alert and oriented to person place and time. Psych: Patient is withdrawn. He states he feels poorly and his legs continue to hurt. MS: Mild TTP over the bilateral legs, no calf edema, erythema, no palpable cords. A/P: Will send patient for Doppler of the legs. Updated my Er attending Dr. López. She agrees. Will continue to monitor patient.
--- NOTE | 2019-03-21 20:32 | VASCULAR PRELIM REPORT ---
Provider Note Provider Note: Positive for left Popliteal DVT, subacute., discussed with Dr Coleman.
[2019-03-21] MEDS: ENOXAPARIN SODIUM INJ 80 MG/0.8 ML DISP.SYRIN SUBCUT SCH (21:44)
[2019-03-21] MEDS: DIVALPROEX SODIUM 500 MG TAB.SR.24H PO SCH (22:40)
[2019-03-21] MEDS: MELATONIN 3 MG TABLET PO SCH (22:40)
[2019-03-22] MEDS: CARBIDOPA/LEVODOPA 10-100 MG TABLET PO SCH ×3 (06:48→21:31)
--- NOTE | 2019-03-22 08:40 | ER Document Report ---
Doctor's Note Notes: 03/22/19 08:27 S: 73-year-old male in the emergency department for his 34th day. He initially came in for combative behavior and dementia. Initially was being held as a psych patient but has been cleared by the behavioral health team. He is now social hold. Our social work team has been trying to find him placement for some time now without a lot of success. I been seeing the patient for the past 3 days and he has been complaining of leg pain. Yesterday he ordered a Doppler on the patient and he does have a left popliteal DVT. He is been started on Lovenox twice daily. He still has pain this morning but he is little bit more alert and sitting up. Does ask about when he is going to be able to "go home". I have put a page out to our social media analyst Mathieu Aguilar and also called our hospitalist this morning. Spoke with Mallory Joyce about the patient and asked her to help us medically manage him so he is getting appropriate management while we wait for placement. She states that she is happy to help and I have placed a consult for them. We appreciate the hospitalist team aid in helping to care for this gentleman while we wait for placement. Patient does report continued bilateral leg pain today. We have also requested a special bed for the patient as our nursing staff has been turning him to prevent ulcerations since his arrival. O: Constitutional: Sitting up in bed, eating breakfast, alert. Cardiac: Regular rate and rhythm, no rubs, gallops, or murmurs. Respiratory: No acute respiratory distress. Lungs are clear bilaterally. No wheezes, rhonchi, rales. Abdomen: Soft, nontender, nondistended. Musculoskeletal: No leg edema. There is pain to palpation in the left popliteal area. There is no erythema or open wounds. Skin: No rash, no skin breakdown, no diaphoresis Neuro: Cranial nerves II through XII intact, no pronator drift, normal [id number], no leg drift patient is oriented to person place Psych: Patient is a little bit more alert and interactive. No SI, HI or hallucinations. Patient here for social hold for dementia A/P: We are attempting to find placement for him. I have reached out to Mathieu Aguilar and hopefully will hear back from her this morning. Have also spoken with the hospitalist team as patient has now developed a DVT. We have started Lovenox and will continue to monitor patient closely.
[2019-03-22] MEDS: ENOXAPARIN SODIUM INJ 80 MG/0.8 ML DISP.SYRIN SUBCUT SCH ×3 (09:37→21:31)
[2019-03-22] MEDS: FAMOTIDINE 20 MG TABLET PO SCH (09:41)
[2019-03-22] MEDS: ACETAMINOPHEN 325 MG TABLET PO SCH ×3 (09:41→21:31)
[2019-03-22] MEDS: MEDROXYPROGESTERONE ACET 10 MG TABLET PO SCH (09:41)
[2019-03-22] MEDS: SERTRALINE HCL 50 MG TABLET PO SCH (09:41)
[2019-03-22] MEDS: DIVALPROEX SODIUM 125 MG CAP.SPRINK PO SCH (09:42)
[2019-03-22] MEDS ORDERED: ENOXAPARIN SODIUM INJ 80 MG/0.8 ML DISP.SYRIN SUBCUT SCH (10:01)
--- NOTE | 2019-03-22 10:11 | XCELERA REPORT ---
[address] [facility] [address] Lower Extremity Venous Evaluation Procedure: Color flow and duplex imaging bilaterally of the veins of the lower extremities as well as the Common Femoral veins. Right Sided Venous Evaluation Normal vessel filling wall to wall, compression and augmentation as well as Colour flow down to the infrageniculate veins. Left Sided Venous Evaluation Abnormal vessel filling, no compression or Colour flow , enlarged vein with echogenic content, surrounding loss of tissue definition, in a short segment of the Popliteal vein. Other veins seem normal. 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 Normal vein on duplex imaging on the right. Name: ALEIDA MURRAY Age: 73 yrs Gender: Male : 1945 Patient Status: Emergency Patient Location: ER Study Date: 03/21/2019 07:03 PM Reason For Study: Bilateral leg pain, been mainly immobilized Ordering Physician: LOUIS AMOS Performed By: Yvonne Bradley : LOUIS AMOS > Abbe Orantes
[2019-03-22 12:28] LABS: HEMATOCRIT 40.1 % (37.9-51.0); MEAN CORPUSCULAR HEMOGLOBIN 33.8 pg (27.0-33.4); MEAN CORPUSCULAR HGB CONC 34.8 g/dL (32.0-36.0); MEAN CORPUSCULAR VOLUME 97 fl (80-97); PLATELET COUNT 146 10^3/uL (150-450); RED BLOOD COUNT 4.14 10^6/uL (4.35-5.55); RED CELL DISTRIBUTION WIDTH 13.5 % (11.5-14.0); WHITE BLOOD COUNT 5.3 10^3/uL (4.0-10.5)
[2019-03-22 12:36] LABS: ABSOLUTE RETICS # 0.073 10^6/uL (0.028-0.122); RETICULOCYTE COUNT (AUTO) 1.76 % (0.66-2.85)
[2019-03-22 13:00] LABS: ANION GAP 9 (5-19); BLOOD UREA NITROGEN 21 mg/dL (7-20); CALCIUM 9.4 mg/dL (8.4-10.2); CARBON DIOXIDE 27 mmol/L (22-30); CHLORIDE 103 mmol/L (98-107); GLUCOSE 107 mg/dL (75-110); IRON(TIBC) 82.9 ug/dL (49-181); POTASSIUM 4.1 mmol/L (3.6-5.0)
[2019-03-22] MEDS: DIVALPROEX SODIUM 250 MG TABLET.DR PO SCH ×2 (15:12→21:31)
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
[2019-03-22] MEDS: MELATONIN 3 MG TABLET PO SCH (21:31)
[2019-03-23] MEDS: ACETAMINOPHEN 325 MG TABLET PO SCH ×4 (05:00→21:43)
[2019-03-23] MEDS: CARBIDOPA/LEVODOPA 10-100 MG TABLET PO SCH ×3 (05:50→22:05)
[2019-03-23] MEDS: DIVALPROEX SODIUM 250 MG TABLET.DR PO SCH ×3 (05:51→22:07)
[2019-03-23] MEDS: ENOXAPARIN SODIUM INJ 80 MG/0.8 ML DISP.SYRIN SUBCUT SCH ×2 (09:12→22:01)
[2019-03-23] MEDS: SERTRALINE HCL 50 MG TABLET PO SCH (09:15)
[2019-03-23] MEDS: FAMOTIDINE 20 MG TABLET PO SCH (09:15)
--- NOTE | 2019-03-23 12:13 | ER Document Report ---
Doctor's Note Notes: 03/23/19 12:12 Patient is a 73-year-old male with a history of Parkinson's/dementia who I am rounding on as we wait for placement. Our social work team is currently trying to find placement for him. He has been evaluated and cleared by our psychology team. He was found to have a DVT 2 days ago and has subsequently been placed on Lovenox. Hospitalist was also consulted and evaluated the patient and placed orders for PT/OT, further DVT prophylaxis, discontinuation of medroxyprogesterone, with other conservative recommendations. They do recommend transition to Xarelto upon discharge. Patient has otherwise not been very compliant with p.o. medications. He is otherwise eating and drinking without difficulty. He is urinating normally and having normal bowel movements. Patient states that he still does have some pain in his right leg, but otherwise no new concerns or complaints. No SI/HI. Denies HAYES, fever, neck pain, URI, CP, SOB, Abd pain, dysuria, back pain, or rash. PHYSICAL EXAMINATION: GENERAL: Well-appearing, well-nourished and in no acute distress. Answers questions appropriately. Lying comfortably on the bed. LUNGS: Breath sounds clear to auscultation bilaterally and equal. No wheezes rales or rhonchi. HEART: Regular rate and rhythm without murmurs, rubs, gallops. ABDOMEN: Soft, nondistended abdomen. No guarding, no rebound. Normal bowel sounds present. No CVA tenderness bilaterally. Grossly nontender Extremities: No cyanosis, clubbing, or edema b/l. NEUROLOGICAL: Normal speech, normal gait. PSYCH: Flat affect A/P: Continue social hold for placement. We will recheck with Jaja Aguilar for an update. Routine vitals and medications as ordered. Continue PT/OT as ordered. Diet as ordered Continued monitoring. Repeat labs in the morning if he is still here.
[2019-03-23] MEDS: MELATONIN 3 MG TABLET PO SCH (22:02)
[2019-03-24] MEDS: ACETAMINOPHEN 325 MG TABLET PO SCH ×4 (03:20→21:37)
[2019-03-24] MEDS: DIVALPROEX SODIUM 250 MG TABLET.DR PO SCH ×3 (06:38→21:45)
[2019-03-24] MEDS: CARBIDOPA/LEVODOPA 10-100 MG TABLET PO SCH ×3 (06:57→21:30)
[2019-03-24] MEDS: SERTRALINE HCL 50 MG TABLET PO SCH (10:16)
[2019-03-24] MEDS: FAMOTIDINE 20 MG TABLET PO SCH (10:16)
--- NOTE | 2019-03-24 10:23 | ER Document Report ---
Doctor's Note Notes: 03/24/19 10:16 I reevaluated this 73-year-old male with a history of Parkinson's/dementia who is also being treated for a DVT to his right leg. Our social work team currently does not have any foreseeable plan for this patient aside from continuing to try and find placement. So far he has had 150 facilities say no. Patient has started to complain of right-sided chest pain. He has been having a cough as well recently. He is otherwise able to eat and drink without difficulty. He is urinating normally and having normal bowel movements. We will start with an EKG, chest x-ray, CBC/CMP, and repeat vitals. May consider consulting hospitalist again thereafter. Reviewed with Dr. Page who is in agreement with plan thus far. No SI/HI. Denies HAYES, fever, neck pain, URI, SOB, Abd pain, n/v/d, dysuria, back pain, or rash. PHYSICAL EXAMINATION: GENERAL: Well-appearing, well-nourished and in no acute respiratory distress. Answers questions appropriately. Lying comfortably on the bed. LUNGS: Breath sounds clear to auscultation bilaterally and equal. No wheezes rales or rhonchi. Very mild dry cough noted. No retractions. HEART: Regular rate and rhythm without murmurs, rubs, gallops. ABDOMEN: Soft, nondistended abdomen. No guarding, no rebound. Normal bowel sounds present. No CVA tenderness bilaterally. Grossly nontender Extremities: No cyanosis, clubbing, or edema b/l. NEUROLOGICAL: Normal speech, normal gait. PSYCH: Flat affect A/P: Continue social hold for placement. Jaja Aguilar does not have any update at this time, case otherwise being managed by Jillian. EKG, CXR, labs, Repeat vitals ordered. Will consider having hospitalist re-consult. Continue meds with new med recs coming from . Continue PT/OT as ordered. Diet as ordered Continued monitoring.
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
[2019-03-24] MEDS: ENOXAPARIN SODIUM INJ 80 MG/0.8 ML DISP.SYRIN SUBCUT SCH ×2 (10:52→21:30)
[2019-03-24 11:22] LABS: ABSOLUTE EOSINOPHILS # (AUTO) 0.1 10^3/uL (0.0-0.6); ABSOLUTE LYMPHOCYTES (AUTO) 1.4 10^3/uL (0.5-4.7); ABSOLUTE MONOCYTES (AUTO) 0.2 10^3/uL (0.1-1.4); ABSOLUTE NEUT (AUTO) 2.3 10^3/uL (1.7-8.2); BASOPHILS % (AUTO) 0.3 % (0-2); EOSINOPHILS % (AUTO) 1.3 % (0-6); HEMATOCRIT 41.1 % (37.9-51.0); LYMPHOCYTES % (AUTO) 34.2 % (13-45); MEAN CORPUSCULAR HGB CONC 34.1 g/dL (32.0-36.0); MEAN CORPUSCULAR VOLUME 97 fl (80-97); PLATELET COUNT 148 10^3/uL (150-450); RED BLOOD COUNT 4.25 10^6/uL (4.35-5.55); RED CELL DISTRIBUTION WIDTH 13.4 % (11.5-14.0); SEGMENTED NEUTROPHILS % (AUTO) 58.2 % (42-78); TOTAL CELLS COUNTED % (AUTO) 100 %
--- NOTE | 2019-03-24 11:25 | RADIOLOGY REPORT (SQ) ---
EXAM DESCRIPTION: CHEST SINGLE VIEW COMPLETED DATE/TIME: 03/24/2019 10:53 am REASON FOR STUDY: Rt chest pain COMPARISON: None. EXAM PARAMETERS: NUMBER OF VIEWS: One view. TECHNIQUE: Single frontal radiographic view of the chest acquired. RADIATION DOSE: NA LIMITATIONS: None. FINDINGS: LUNGS AND PLEURA: No opacities, masses or pneumothorax. No pleural effusion. MEDIASTINUM AND HILAR STRUCTURES: No masses. Contour normal. HEART AND VASCULAR STRUCTURES: Heart normal in size. Normal vasculature. BONES: No acute findings. HARDWARE: None in the chest. OTHER: No other significant finding. IMPRESSION: NO ACUTE RADIOGRAPHIC FINDING IN THE CHEST. TECHNICAL DOCUMENTATION: JOB ID: [id number] [employer]- All Rights Reserved Reading location - IP/workstation name: [email or web address]
[2019-03-24 11:48] LABS: ALBUMIN 4.3 g/dL (3.5-5.0); ALKALINE PHOSPHATASE 85 U/L (38-126); ANION GAP 7 (5-19); ASPARTATE AMINO TRANSFERASE 30 U/L (17-59); BILIRUBIN,DIRECT 0.1 mg/dL (0.0-0.4); BILIRUBIN,TOTAL 0.7 mg/dL (0.2-1.3); BLOOD UREA NITROGEN 19 mg/dL (7-20); CALCIUM 9.6 mg/dL (8.4-10.2); CARBON DIOXIDE 29 mmol/L (22-30); CHLORIDE 103 mmol/L (98-107); GLUCOSE 132 mg/dL (75-110); POTASSIUM 4.3 mmol/L (3.6-5.0); TOTAL PROTEIN 7.3 g/dL (6.3-8.2)
[2019-03-24 17:42] LABS: APPEARANCE,URINE SLIGHTLY-CLOUDY; BILIRUBIN,URINE NEGATIVE (NEGATIVE); COLOR,URINE YELLOW; GLUCOSE, URINE NEGATIVE (NEGATIVE); KETONES,URINE 20 mg/dL (NEGATIVE); PROTEIN,URINE NEGATIVE (NEGATIVE); URINE SPECIFIC GRAVITY 1.024
[2019-03-24] MEDS: MELATONIN 3 MG TABLET PO SCH (21:29)
--- NOTE | 2019-03-24 23:02 | EKG REPORT ---
SEVERITY:- ABNORMAL ECG - SINUS RHYTHM : Confirmed by: Jamal Darling 24-Mar-2019 23:01:21
[2019-03-25] MEDS: ACETAMINOPHEN 325 MG TABLET PO SCH ×4 (06:04→22:13)
[2019-03-25] MEDS: DIVALPROEX SODIUM 250 MG TABLET.DR PO SCH ×3 (06:05→22:13)
[2019-03-25] MEDS: CARBIDOPA/LEVODOPA 10-100 MG TABLET PO SCH ×3 (06:22→22:13)
[2019-03-25] MEDS: ENOXAPARIN SODIUM INJ 80 MG/0.8 ML DISP.SYRIN SUBCUT SCH ×2 (09:36→22:14)
[2019-03-25] MEDS: FAMOTIDINE 20 MG TABLET PO SCH (09:38)
[2019-03-25] MEDS: SERTRALINE HCL 50 MG TABLET PO SCH (09:38)
--- NOTE | 2019-03-25 13:48 | ER Document Report ---
Doctor's Note Notes: 03/25/19 13:48 PHYSICAL EXAMINATION: GENERAL: Well-appearing and in no acute distress. HEAD: Atraumatic, normocephalic. EYES: extraocular movements intact, sclera anicteric, conjunctiva are normal. ENT: nares patent, Moist mucous membranes. NECK: Normal range of motion, supple without lymphadenopathy LUNGS: CTAB and equal. No wheezes rales or rhonchi. HEART: Regular rate and rhythm without murmurs ABDOMEN: Soft, no tenderness. No guarding, no rebound EXTREMITIES: Normal range of motion, no pitting edema. No cyanosis. BACK: No midline tenderness, no CVA tenderness NEUROLOGICAL: Cranial nerves grossly intact. Normal speech. PSYCH: Normal mood, normal affect. SKIN: Warm, Dry, normal turgor, no rashes or lesions noted Patient's nursing notes, vital signs and previous diagnostic evaluation reviewed. Patient is here as a social hold waiting transfer to an accepting facility. Review of social work note states that they are still in the process of finding placement, although have been having difficulty due to his previous behavior and underlying medical history. Patient sitting in chair, eating mila akfast without any concerns.
[2019-03-25] MEDS: MELATONIN 3 MG TABLET PO SCH (22:12)
[2019-03-26] MEDS: ACETAMINOPHEN 325 MG TABLET PO SCH ×4 (07:01→20:23)
[2019-03-26] MEDS: CARBIDOPA/LEVODOPA 10-100 MG TABLET PO SCH ×3 (07:03→22:09)
[2019-03-26] MEDS: DIVALPROEX SODIUM 250 MG TABLET.DR PO SCH ×3 (08:08→22:11)
[2019-03-26] MEDS: ENOXAPARIN SODIUM INJ 80 MG/0.8 ML DISP.SYRIN SUBCUT SCH ×2 (10:11→22:12)
[2019-03-26] MEDS: FAMOTIDINE 20 MG TABLET PO SCH (10:11)
[2019-03-26] MEDS: SERTRALINE HCL 50 MG TABLET PO SCH (10:11)
--- NOTE | 2019-03-26 12:44 | ER Document Report ---
Doctor's Note Notes: 03/26/19 12:43 Patient has been resting comfortably, breathing even and unlabored in no acute distress. Patient is sleeping at this time but easy to arouse. Nursing staff reports that the patient was up and out of the bed for breakfast and for an hour afterwards this morning. We will continue to monitor. Patient remains a social hold.
[2019-03-26] MEDS: MELATONIN 3 MG TABLET PO SCH (22:08)
[2019-03-27] MEDS: CARBIDOPA/LEVODOPA 10-100 MG TABLET PO SCH ×3 (07:01→21:51)
[2019-03-27] MEDS: DIVALPROEX SODIUM 250 MG TABLET.DR PO SCH ×3 (07:02→21:53)
[2019-03-27] MEDS: ACETAMINOPHEN 325 MG TABLET PO SCH ×4 (09:59→21:48)
[2019-03-27] MEDS: ENOXAPARIN SODIUM INJ 80 MG/0.8 ML DISP.SYRIN SUBCUT SCH ×2 (10:15→21:49)
[2019-03-27] MEDS: SERTRALINE HCL 50 MG TABLET PO SCH (11:05)
[2019-03-27] MEDS: FAMOTIDINE 20 MG TABLET PO SCH (11:05)
[2019-03-27 12:09] LABS: ABSOLUTE EOSINOPHILS # (AUTO) 0.1 10^3/uL (0.0-0.6); ABSOLUTE LYMPHOCYTES (AUTO) 1.2 10^3/uL (0.5-4.7); ABSOLUTE MONOCYTES (AUTO) 0.2 10^3/uL (0.1-1.4); ABSOLUTE NEUT (AUTO) 2.1 10^3/uL (1.7-8.2); BASOPHILS % (AUTO) 0.3 % (0-2); EOSINOPHILS % (AUTO) 1.9 % (0-6); HEMATOCRIT 43.7 % (37.9-51.0); HEMOGLOBIN 14.7 g/dL (13.5-17.0); LYMPHOCYTES % (AUTO) 33.3 % (13-45); MEAN CORPUSCULAR HGB CONC 33.6 g/dL (32.0-36.0); MEAN CORPUSCULAR VOLUME 98 fl (80-97); PLATELET COUNT 166 10^3/uL (150-450); RED BLOOD COUNT 4.45 10^6/uL (4.35-5.55); RED CELL DISTRIBUTION WIDTH 13.5 % (11.5-14.0); SEGMENTED NEUTROPHILS % (AUTO) 59.5 % (42-78); TOTAL CELLS COUNTED % (AUTO) 100 %; WHITE BLOOD COUNT 3.6 10^3/uL (4.0-10.5)
[2019-03-27 12:23] LABS: ALBUMIN 4.6 g/dL (3.5-5.0); ALKALINE PHOSPHATASE 86 U/L (38-126); ANION GAP 13 (5-19); ASPARTATE AMINO TRANSFERASE 57 U/L (17-59); BILIRUBIN,DIRECT 0.1 mg/dL (0.0-0.4); BILIRUBIN,TOTAL 0.6 mg/dL (0.2-1.3); BLOOD UREA NITROGEN 24 mg/dL (7-20); CALCIUM 9.7 mg/dL (8.4-10.2); CARBON DIOXIDE 27 mmol/L (22-30); CHLORIDE 103 mmol/L (98-107); GLUCOSE 135 mg/dL (75-110); POTASSIUM 4.4 mmol/L (3.6-5.0)
--- NOTE | 2019-03-27 20:01 | ER Document Report ---
Doctor's Note Notes: 03/27/19 15:00 Patient resting comfortably on bed. Nurse reports that he has been up in the chair at the bedside. Patient denies pain. No acute distress. We will continue to monitor. Legs are not edematous without redness. Patient has leg pain. Platelet count was checked as the patient is on Lovenox for DVT. Platel et count is stable.
[2019-03-27] MEDS: MELATONIN 3 MG TABLET PO SCH (21:50)
[2019-03-28] MEDS: ACETAMINOPHEN 325 MG TABLET PO SCH ×4 (02:39→23:10)
[2019-03-28] MEDS: DIVALPROEX SODIUM 250 MG TABLET.DR PO SCH ×3 (05:26→22:43)
[2019-03-28] MEDS: CARBIDOPA/LEVODOPA 10-100 MG TABLET PO SCH ×3 (06:31→23:12)
[2019-03-28] MEDS: SERTRALINE HCL 50 MG TABLET PO SCH ×2 (10:38→10:50)
[2019-03-28] MEDS: ENOXAPARIN SODIUM INJ 80 MG/0.8 ML DISP.SYRIN SUBCUT SCH ×2 (10:38→23:13)
[2019-03-28] MEDS: FAMOTIDINE 20 MG TABLET PO SCH ×2 (10:38→10:50)
[2019-03-28] MEDS ORDERED: CARBOXYMETHYLCELLULOSE SOD 0.5% 0.4 ML DROPERETTE OU PRN (12:54)
--- NOTE | 2019-03-28 12:56 | ER Document Report ---
Doctor's Note Notes: 03/28/19 12:52 Patient is resting comfortably on stretcher. Breathing is even and unlabored. Patient does have good eye contact and smiling. Patient continues to refuse some of his prescribed medications. Patient reports he feels like he does not need this. Patient has been calm and cooperative without signs of agitation or aggression towards staff. I was present in the room and the nurse was changing the patient's wet depends; patient does not have any erythema or skin breakdown. Legs are without edema or erythema bilaterally. Patient does complain of dry eye. Patient reports he does not have any eye pain or drainage. Will order refresh drops for the patient.
[2019-03-28] MEDS: MELATONIN 3 MG TABLET PO SCH (23:12)
[2019-03-29] MEDS: ACETAMINOPHEN 325 MG TABLET PO SCH ×4 (05:00→21:57)
[2019-03-29] MEDS: CARBIDOPA/LEVODOPA 10-100 MG TABLET PO SCH ×3 (05:36→21:56)
[2019-03-29] MEDS: DIVALPROEX SODIUM 250 MG TABLET.DR PO SCH ×3 (06:34→22:15)
[2019-03-29] MEDS: ENOXAPARIN SODIUM INJ 80 MG/0.8 ML DISP.SYRIN SUBCUT SCH ×2 (11:00→22:08)
[2019-03-29] MEDS: FAMOTIDINE 20 MG TABLET PO SCH (11:07)
[2019-03-29] MEDS: SERTRALINE HCL 50 MG TABLET PO SCH (11:08)
[2019-03-29] MEDS ORDERED: DOCUSATE SODIUM 100 MG CAPSULE PO ONE (14:30)
--- NOTE | 2019-03-29 15:21 | ER Document Report ---
Doctor's Note Notes: 03/29/19 15:19 Daily APC rounding note: PHYSICAL EXAMINATION: GENERAL: Well-appearing and in no acute distress. HEAD: Atraumatic, normocephalic. EYES: extraocular movements intact, sclera anicteric, conjunctiva are normal. ENT: nares patent, Moist mucous membranes. NECK: Normal range of motion, supple without lymphadenopathy LUNGS: CTAB and equal. No wheezes rales or rhonchi. HEART: Regular rate and rhythm without murmurs ABDOMEN: Soft, no tenderness. No guarding, no rebound EXTREMITIES: Normal range of motion, no pitting edema. No cyanosis. BACK: No midline tenderness, no CVA tenderness NEUROLOGICAL: Cranial nerves grossly intact. Normal speech. PSYCH: Normal mood, normal affect. SKIN: Warm, Dry, normal turgor, no rashes or lesions noted. Patient's nursing notes, vital signs and previous diagnostic evaluation reviewed. Patient is here as a social hold waiting transfer to an accepting facility. Review of social work note states that they are still in the process of finding placement, although have been having difficulty due to his previous behavior and underlying medical history. Patient sitting in chair, eating breakfast without any concerns.
[2019-03-29] MEDS ORDERED: MAGNESIUM HYDROXIDE SUSP 30 ML UDCUP PO ONE (18:58)
[2019-03-29] MEDS: MELATONIN 3 MG TABLET PO SCH (21:57)
[2019-03-30] MEDS: ACETAMINOPHEN 325 MG TABLET PO SCH ×3 (03:27→14:02)
[2019-03-30] MEDS: CARBIDOPA/LEVODOPA 10-100 MG TABLET PO SCH ×3 (06:15→22:02)
[2019-03-30] MEDS: DIVALPROEX SODIUM 250 MG TABLET.DR PO SCH ×2 (07:56→13:38)
[2019-03-30] MEDS: ENOXAPARIN SODIUM INJ 80 MG/0.8 ML DISP.SYRIN SUBCUT SCH ×2 (09:51→22:10)
--- NOTE | 2019-03-30 09:54 | ER Document Report ---
Doctor's Note Notes: 03/30/19 09:20 PHYSICAL EXAMINATION: GENERAL: Resting with eyes closed, arouses easily to tactile stimulation, no acute distress. HEAD: Atraumatic, normocephalic. EYES: sclera anicteric, conjunctiva are normal. ENT: nares patent. Moist mucous membranes. NECK: Normal range of motion, supple without lymphadenopathy LUNGS: CTAB and equal. No wheezes rales or rhonchi. HEART: Regular rate and rhythm without murmurs ABDOMEN: Soft, nontender, normal bowel sounds, no guarding. EXTREMITIES: Normal range of motion, no pitting edema. No cyanosis. BACK: No midline tenderness, No CVA tenderness NEUROLOGICAL: Cranial nerves grossly intact. Normal speech. PSYCH: Normal mood, flat affect. SKIN: Warm, Dry, normal turgor, no rashes or lesions noted Nurse does state that patient had been assisted to chair for breakfast. Consulted with Dr. Nuno regarding patient's status and plan of care. Recommends consulting with mental health for medical management as patient continues to refuse his Depakote. Also recommends consulting with hospitalist regarding any additional recommendations at this time. Spoke with Mathieu Ruiz with discharge planning who states that she is awaiting to hear back from the state regarding patient's status and placement concerns. Mathieu also states that she is consulting with facilities in the [place] area awaiting feedback. 03/30/19 12:46 Consulted with Mallory Joyce NP who agrees to consult on patient to evaluate for any medical needs. 03/30/19 13:24 Mathieu Resendiz with discharge planning states that an APS worker is at bedside for evaluation. She is requesting a capacity evaluation be performed per the mental health team. 03/30/19 16:14 Mathieu with mental health team states that SELWYN Joyce as well as APS worker decided that patient does not require a capacity evaluation at this time.
[2019-03-30] MEDS: FAMOTIDINE 20 MG TABLET PO SCH (10:01)
[2019-03-30] MEDS: SERTRALINE HCL 50 MG TABLET PO SCH (10:01)
[2019-03-30] MEDS ORDERED: ONDANSETRON 4 MG TAB.RAPDIS PO PRN (15:27)
[2019-03-30] MEDS ORDERED: MAG HYDROX/AL HYDROX/SIMETH SUSP 30 ML UDCUP PO PRN (15:27)
[2019-03-30] MEDS ORDERED: CARBOXYMETHYLCELLULOSE SOD 0.5% 0.4 ML DROPERETTE OU PRN (19:56)
--- NOTE | 2019-03-30 20:03 | PDOC CONSULTATION ---
Consultation Consult Date: 03/30/19 Provider Consulted: LIN MCCULLOUGH Consult reason:: Medication eval History of Present Illness Admission Date/PCP: 02/16/19 History of Present Illness: Per ED Provider note (02/16/19): 73-year-old male was brought in for severe agitation. He has a history of agitated dementia and Parkinson's dementia. He was swinging his walker around the long-term today and flailing and punching people. Patient has had this on several occasions before. He was so agitated he could not give PRN meds. EMS was activated. EMS gave the patient ketamine due to his severe agitation. The patient has awoke here and is been agreeable for us. Denies any complaints of chest pain or shortness of breath denies abdominal pain he is pleasantly demented at this time. Course: The patient has remained a social hold in the emergency department since 02/16/2019 due to placement issues at [facility]. He has been hemodynamically stable. Unfortunately, a few days ago the patient began complaining of left lower extremity pain and venous Doppler revealed a subacute to popliteal DVT. Hospitalist service was consulted for evaluation and medical management recommendations. Re-consulted on 03/30/19 for medication review and recommendations. The patient has had no acute developments since he was last seen on 03/22/2019. He continues to refuse all medications other than his Sinemet, Lovenox, and melatonin. Spoke with discharge planning today; Jillian confirms that she was able to get in contact with the patient's and she is agreeable for admission to hospice services he is not inpatient hospice appropriate, however, this may assist with finding placement for long-term care. The patient was seen on afternoon rounds; was found resting in bed comfortably on room air. He was sleeping when I entered the room but woke easily when I said his name. He states that he is feeling well and has no questions or concerns at this time. He denies all symptoms of fever, chills, chest pain, shortness of breath, abdominal pain, nausea vomiting and diarrhea. Per nursing, patient has no new concerns, no behavioral disturbances, will get out of bed for meals with assistance, and has a good appetite. No concerns per nursing. Past Medical History Cardiac Medical History: Reports: DVT Pulmonary Medical History: Reports: None EENT Medical History: Reports: None Neurological Medical History: Reports: None Endocrine Medical History: Reports: Diabetes Mellitus Type 2 Denies: Diabetes Mellitus Type 1 Renal/ Medical History: Reports: None Malignancy Medical History: Reports: None GI Medical History: Reports: Gastroesophageal Reflux Disease Musculoskeltal Medical History: Reports: Arthritis Psychiatric Medical History: Reports: Dementia, Depression Traumatic Medical History: Reports: None Hematology: Reports: Anemia Infectious Medical History: Reports: None Past Surgical History Past Surgical History: Reports: Cholecystectomy Social History Information Source: Patient, [facility] Records Lives with: Jail Smoking Status: Unknown if Ever Smoked Electronic Cigarette use?: No Frequency of Alcohol Use: None Hx Recreational Drug Use: No Hx Prescription Drug Abuse: No - Advance Directive Resuscitation Status: Do Not Resuscitate Surrogate healthcare decision maker:: The patient's , Lesly Braden Family History Family History: Reviewed & Not Pertinent Parental Family History Reviewed: No Children Family History Reviewed: No Sibling(s) Family History Reviewed.: No Medication/Allergy Home Medications: Acetaminophen 650 mg PO Q6HP PRN 02/16/19 Carbidopa/Levodopa [Carbidopa-Levo 10-100 mg Odt] 1.5 tab PO TID 02/16/19 Cold Cream/Zinc Oxide/Star/Kirill [Dermacloud Ointment] 430 gm TP ASDIR PRN 02/16/19 Divalproex Sodium 500 mg PO QHS 02/16/19 Divalproex Sodium [Depakote] 375 mg PO BID 02/16/19 Guaifenesin [Mucus-Chest Congestion] 10 ml PO Q4HP PRN 02/16/19 Lidocaine [Lidoderm 5% (700 mg) Transdermal Patch] 1 patch TP DAILY 02/16/19 Lorazepam [Ativan 1 mg Tablet] 1 mg PO BIDP PRN 02/16/19 Magnesium Hydroxide [Milk of Magnesia 30 ml Udcup] 30 ml PO DAILYP PRN 02/16/19 Medroxyprogesterone Acet [Provera 10 Mg Tablet] 10 mg PO DAILY 02/16/19 Melatonin [Melatonin 3 mg Tablet] 6 mg PO QHS 02/16/19 Sertraline HCl [Zoloft 50 mg Tablet] 50 mg PO DAILY 02/16/19 Allergies/Adverse Reactions: No Known Allergies Allergy (Verified 02/16/19 18:00) Review of Systems Constitutional: ABSENT: chills, fever(s), headache(s), weight gain, weight loss Eyes: PRESENT: other - Conjunctivitis. ABSENT: visual disturbances Ears: ABSENT: hearing changes Nose, Mouth, and Throat: PRESENT: headache(s) Cardiovascular: ABSENT: chest pain, dyspnea on exertion, edema, orthropnea, palpitations Respiratory: ABSENT: cough, hemoptysis Gastrointestinal: ABSENT: abdominal pain, constipation, diarrhea, hematemesis, hematochezia, nausea, vomiting Genitourinary: ABSENT: dysuria, hematuria Musculoskeletal: ABSENT: joint swelling Integumentary: ABSENT: rash, wounds Neurological: ABSENT: abnormal gait, abnormal speech, confusion, dizziness, focal weakness, syncope Psychiatric: ABSENT: anxiety, depression, homidical ideation, suicidal ideation Endocrine: ABSENT: cold intolerance, heat intolerance, polydipsia, polyuria Hematologic/Lymphatic: ABSENT: easy bleeding, easy bruising Physical Exam Vital Signs: Temp Pulse Resp BP Pulse Ox 97.5 F 71 18 107/64 96 03/30/19 17:06 03/30/19 17:06 03/30/19 17:06 03/30/19 17:06 03/30/19 17:06 Intake & Output 03/29/19 03/30/19 03/31/19 06:59 06:59 06:59 Weight 67.177 kg General appearance: PRESENT: no acute distress, well-developed, well-nourished Head exam: PRESENT: atraumatic, normocephalic Eye exam: PRESENT: conjunctival injection, EOMI, PERRLA. ABSENT: scleral icterus Mouth exam: PRESENT: moist, tongue midline Teeth exam: PRESENT: poor dentation Respiratory exam: PRESENT: clear to auscultation damon, symmetrical, unlabored. ABSENT: rales, rhonchi, wheezes Cardiovascular exam: PRESENT: RRR, +S1, +S2. ABSENT: diastolic murmur, rubs, systolic murmur Pulses: PRESENT: normal dorsalis pedis pul Vascular exam: PRESENT: normal capillary refill GI/Abdominal exam: PRESENT: normal bowel sounds, soft. ABSENT: distended, guarding, mass, organolmegaly, rebound, tenderness Rectal exam: PRESENT: deferred Extremities exam: PRESENT: full ROM. ABSENT: calf tenderness, clubbing, pedal edema Musculoskeletal exam: PRESENT: ambulatory - Short distances with assist Neurological exam: PRESENT: alert, awake, oriented to person, oriented to place, oriented to situation - Intermittently, CN II-XII grossly intact, other - Intermittent confusion; no behavioral disturbances per nursing. ABSENT: oriented to time, motor sensory deficit Psychiatric exam: PRESENT: appropriate affect, normal mood. ABSENT: homicidal ideation, suicidal ideation Skin exam: PRESENT: dry, intact, warm. ABSENT: cyanosis, rash Results Laboratory Results: 03/27/19 11:43 03/27/19 11:43 Impressions: Head CT 02/16/19 10:50 IMPRESSION: NORMAL BRAIN CT WITHOUT CONTRAST. EVIDENCE OF ACUTE STROKE: NO. Chest X-Ray 03/24/19 10:07 IMPRESSION: NO ACUTE RADIOGRAPHIC FINDING IN THE CHEST. Assessment and Plan - Diagnosis (1) DVT (deep venous thrombosis) Qualifiers: DVT location: lower extremity Affected thrombotic vein of extremity: popliteal Chronicity: unspecified Laterality: left Qualified Code(s): I82.432 - Acute embolism and thrombosis of left popliteal vein Is this a current diagnosis for this admission?: Yes Plan: Venous Doppler revealed subacute left popliteal DVT. He remains hemodynamically stable. Unfortunately, the patient is primarily bedbound due to his mentation, frequent refusal to participate with PT/ambulate, and social hold while in the emergency department over the last month. His DVT was further provoked by having been treated with Medroxyprogesterone for management of his hypersexual behaviors. While at [facility], would recommend utilizing full dose Lovenox to increase likelihood of patient compliance. Once discharged, he can be safely transitioned to Xarelto. Initial treatment with Xarelto is 15 mg twice daily x21 days (would subtract the number of days on Lovenox from this -currently on day #9 of treatment) followed by transition to 20 mg once daily. Previously discontinued Medroxyprogesterone. Non-narcotic analgesics as needed for discomfort. JARED hose. Out of bed for meals. Ambulate 3 times daily. Given the patient's advanced dementia and frequent refusal of oral medications, it would also be prudent to discuss goals of care with the patient's designated healthcare proxy. Discussed with discharge planning today; they have been in touch with the patient's who is agreeable to transition to hospice services. DNR placed. The patient remains medically stable for discharge from the hospitalist perspective. (2) Anemia Qualifiers: Anemia type: unspecified type Qualified Code(s): D64.9 - Anemia, unspecified Is this a current diagnosis for this admission?: Yes Plan: Resolved; hemoglobin 13.4 on admission; no prior labs to compare to. Hemoglobin has trended up to 14.7 Anemia panel is normal. No evidence of bleeding. Possibly related to poor nutrition which certainly has improved while in the em ergency department with nurse coaching dietary/p.o. intake. Continue regular diet with Boost TID at meals. No additional work-up or interventions required. Recommend routine monitoring by PCP (3) Hyperglycemia Is this a current diagnosis for this admission?: Yes Plan: Not clinically significant. Elevated glucose is incidental finding on random chemistries. A1c is 5.7%. TSH is normal. Continue regular diet. (4) Dementia Qualifiers: Dementia type: Parkinson's disease Dementia behavioral disturbance: with behavioral disturbance Qualified Code(s): G20 - Parkinson's disease; F02.81 - Dementia in other diseases classified elsewhere with behavioral disturbance Is this a current diagnosis for this admission?: Yes Plan: The patient has a long-standing history of Parkinson's dementia with behavioral disturbances. Has been followed by outpatient neuropsychiatry services. Currently in social hold in the emergency department awaiting long-term care placement. Psychiatric services were last consulted 02/16/2019. He was cleared from a psychiatric perspective at that time. Spoke with mental health services today; as the patient has the right to refuse medications and is now interested in pursuing hospice services, will discontinue all medications the patient has been routinely refusing. Continue supportive care. Discharge planning is consulted. - Plan Summary Summary: At this time, the patient is hemodynamically stable and does not require inpatient or observation status. While in the hospital, would recommend continuing full dose Lovenox to improve patient compliance with transition to Xarelto at discharge as described above. Have discontinued all medications patient routinely declines; none were considered life sustaining. Recommend following up on Goals of Care; is reportedly interested in transitioning to Hospice Services. This may provide additional avenues for placement. He has no other acute or uncompensated chronic medical conditions at this time. The patient is medically stable for discharge from the hospitalist perspective. We will follow periodically; please contact for any acute issues or if we can be of any further assistance. - Time Time Spent with patient: 25-34 minutes Medications reviewed and adjusted accordingly: Yes Anticipated discharge: Other Within: when bed available
[2019-03-30] MEDS: MELATONIN 3 MG TABLET PO SCH (22:02)
[2019-03-30] MEDS: ACETAMINOPHEN 325 MG TABLET PO PRN (22:03)
[2019-03-31] MEDS ORDERED: ERYTHROMYCIN 0.5% OPH OINT 1 GM UNIT DOSE OU ONE (00:14)
[2019-03-31] MEDS: ERYTHROMYCIN 0.5% OPH OINTMENT 3.5 GM TUBE OU SCH ×4 (00:16→18:45)
[2019-03-31] MEDS: CARBIDOPA/LEVODOPA 10-100 MG TABLET PO SCH ×3 (05:56→22:45)
[2019-03-31] MEDS: ENOXAPARIN SODIUM INJ 80 MG/0.8 ML DISP.SYRIN SUBCUT SCH ×2 (10:25→22:57)
--- NOTE | 2019-03-31 11:00 | ER Document Report ---
Doctor's Note Notes: 03/31/19 10:58 Spoke with patient at the bedside. He was interactive and he was complaining that his head and arms felt numb. Hospitalist did consult on the patient yesterday, see their note for recommendations. Patient is still receiving Lovenox for his DVT. Patient denies any pain at this time. Still awaiting a definitive plan for hospice and I will follow-up with correctional case records supervisor. 03/31/19 19:54 Did not receive an update from the correctional case records supervisor today, disposition still pending.
[2019-03-31] MEDS: MELATONIN 3 MG TABLET PO SCH (22:45)
[2019-03-31] MEDS: ACETAMINOPHEN 325 MG TABLET PO PRN (23:55)
[2019-04-01] MEDS: ERYTHROMYCIN 0.5% OPH OINTMENT 3.5 GM TUBE OU SCH ×5 (00:45→23:18)
[2019-04-01] MEDS: CARBIDOPA/LEVODOPA 10-100 MG TABLET PO SCH ×4 (06:29→21:55)
[2019-04-01] MEDS: ENOXAPARIN SODIUM INJ 80 MG/0.8 ML DISP.SYRIN SUBCUT SCH ×2 (10:23→21:53)
--- NOTE | 2019-04-01 18:20 | ER Document Report ---
Doctor's Note Notes: 04/01/19 18:19 Patient was seen and evaluated today. Chart review complete. Patient was rounded on by inpatient medicine team yesterday. Patient denies any complaints today. He is refused to get up out of bed for his meals but has no acute complaints. He is calm and cooperative. canvas worker for the ED reports that a placement person is coming from a facility to interview the patient tomorrow morning for possible placement at a facility in [place].
[2019-04-01] MEDS: MELATONIN 3 MG TABLET PO SCH (21:54)
[2019-04-01] MEDS: ACETAMINOPHEN 325 MG TABLET PO PRN (22:45)
[2019-04-02] MEDS: CARBIDOPA/LEVODOPA 10-100 MG TABLET PO SCH ×3 (05:38→21:05)
[2019-04-02] MEDS: ERYTHROMYCIN 0.5% OPH OINTMENT 3.5 GM TUBE OU SCH ×3 (05:39→17:13)
[2019-04-02] MEDS: ENOXAPARIN SODIUM INJ 80 MG/0.8 ML DISP.SYRIN SUBCUT SCH ×2 (09:52→21:05)
[2019-04-02] MEDS: ACETAMINOPHEN 325 MG TABLET PO PRN (10:31)
--- NOTE | 2019-04-02 10:44 | ER Document Report ---
Doctor's Note Notes: 04/02/19 08:43 Spoke with Mathieu Jeff regarding patient's current status. States that she is waiting to hear from [facility] whether or not they are willing to accept patient. 04/02/19 11:13 Mathieu Mayurluciarachelle oral states that patient is being considered at a facility in [place] and she is waiting to hear back from them. Mathieu states if patient is excepted he would not be able to transfer there for a week due to Medicaid requirements. PHYSICAL EXAMINATION: GENERAL: Awake, alert, no acute distress. HEAD: Atraumatic, normocephalic. EYES: sclera anicteric, conjunctiva are normal. ENT: nares patent. Moist mucous membranes. NECK: Normal range of motion, supple without lymphadenopathy LUNGS: CTAB and equal. No wheezes rales or rhonchi. HEART: Regular rate and rhythm without murmurs ABDOMEN: Soft, nontender, normal bowel sounds, no guarding. EXTREMITIES: Normal range of motion, no pitting edema. No cyanosis. BACK: No CVA tenderness NEUROLOGICAL: Cranial nerves grossly intact. Normal speech. PSYCH: Normal mood, normal affect. SKIN: Warm, Dry, normal turgor, no rashes or lesions noted
[2019-04-02] MEDS: MELATONIN 3 MG TABLET PO SCH (21:05)
[2019-04-03] MEDS: ERYTHROMYCIN 0.5% OPH OINTMENT 3.5 GM TUBE OU SCH ×4 (00:41→18:17)
[2019-04-03] MEDS: CARBIDOPA/LEVODOPA 10-100 MG TABLET PO SCH ×3 (06:04→21:31)
[2019-04-03] MEDS: ENOXAPARIN SODIUM INJ 80 MG/0.8 ML DISP.SYRIN SUBCUT SCH ×2 (10:41→21:31)
--- NOTE | 2019-04-03 11:38 | ER Document Report ---
Doctor's Note Notes: 04/03/19 11:35 Reevaluation of the patient that is been here for quite a while now. Patient has no new concerns or complaints. He is able to eat and drink without difficulty. He is urinating normally and having normal bowel movements. I did review previous hospitalist note from recent consult and they are to continue m anagement as ordered. The is agreeable to hospice care. He is currently a DNR. According to social media manager, we are possibly going to have an accepting facility, but that is still pending at this time as noted in yesterday's course note. No new concerns or complaints. We will recheck some basic labs. Denies any headache, fever, neck pain, URI, sore throat, chest pain, palpitations, syncope, cough, shortness of breath, wheeze, dyspnea, abdominal pain, nausea/vomiting/diarrhea, dysuria, hematuria, or rash. General: A&O. Answers questions appropriately. Resting calmly, but easily arou sable. Heart: RRR Lungs: CTAB Psych: Flat affect A/P: Vitals acceptable. Recheck cbc, cmp, UA. Continue monitoring and med rec's per . Waiting on further rec's from Social work team. Normal diet DNR per recent hospitalist neftaly.
[2019-04-03 12:12] LABS: ABSOLUTE LYMPHOCYTES (AUTO) 1.1 10^3/uL (0.5-4.7); ABSOLUTE MONOCYTES (AUTO) 0.3 10^3/uL (0.1-1.4); BASOPHILS % (AUTO) 0.2 % (0-2); EOSINOPHILS % (AUTO) 1.1 % (0-6); HEMATOCRIT 35.5 % (37.9-51.0); HEMOGLOBIN 12.1 g/dL (13.5-17.0); LYMPHOCYTES % (AUTO) 23.9 % (13-45); MEAN CORPUSCULAR HEMOGLOBIN 33.2 pg (27.0-33.4); MEAN CORPUSCULAR HGB CONC 34.1 g/dL (32.0-36.0); MEAN CORPUSCULAR VOLUME 98 fl (80-97); MONOCYTES % (AUTO) 6.7 % (3-13); PLATELET COUNT 171 10^3/uL (150-450); RED BLOOD COUNT 3.64 10^6/uL (4.35-5.55); RED CELL DISTRIBUTION WIDTH 13.8 % (11.5-14.0); SEGMENTED NEUTROPHILS % (AUTO) 68.1 % (42-78); TOTAL CELLS COUNTED % (AUTO) 100 %; WHITE BLOOD COUNT 4.4 10^3/uL (4.0-10.5)
[2019-04-03 12:28] LABS: ALBUMIN 4.1 g/dL (3.5-5.0); ALKALINE PHOSPHATASE 73 U/L (38-126); ANION GAP 8 (5-19); ASPARTATE AMINO TRANSFERASE 28 U/L (17-59); BILIRUBIN,TOTAL 0.6 mg/dL (0.2-1.3); BLOOD UREA NITROGEN 25 mg/dL (7-20); CALCIUM 9.2 mg/dL (8.4-10.2); CARBON DIOXIDE 28 mmol/L (22-30); CHLORIDE 103 mmol/L (98-107); GLUCOSE 120 mg/dL (75-110); POTASSIUM 4.1 mmol/L (3.6-5.0)
[2019-04-03 14:13] LABS: AMORPHOUS SEDIMENT,URINE TRACE /HPF; APPEARANCE,URINE CLOUDY; BILIRUBIN,URINE NEGATIVE (NEGATIVE); COLOR,URINE YELLOW; GLUCOSE, URINE NEGATIVE (NEGATIVE); KETONES,URINE TRACE mg/dL (NEGATIVE); PROTEIN,URINE NEGATIVE (NEGATIVE); URINE SPECIFIC GRAVITY 1.023
[2019-04-03] MEDS: MELATONIN 3 MG TABLET PO SCH (21:31)
[2019-04-03] MEDS: DOCUSATE SODIUM 100 MG CAPSULE PO SCH (21:36)
[2019-04-04] MEDS: ERYTHROMYCIN 0.5% OPH OINTMENT 3.5 GM TUBE OU SCH ×4 (00:45→18:50)
[2019-04-04] MEDS: ACETAMINOPHEN 325 MG TABLET PO PRN ×2 (03:26→12:08)
[2019-04-04] MEDS: CARBIDOPA/LEVODOPA 10-100 MG TABLET PO SCH ×3 (06:32→22:16)
[2019-04-04] MEDS: ENOXAPARIN SODIUM INJ 80 MG/0.8 ML DISP.SYRIN SUBCUT SCH ×2 (10:40→21:46)
[2019-04-04] MEDS: DOCUSATE SODIUM 100 MG CAPSULE PO SCH (10:43)
--- NOTE | 2019-04-04 11:36 | ER Document Report ---
Doctor's Note Notes: 04/04/19 11:31 See yesterday's progress note as well. Pt eating/drinking w/o difficulty. No new concerns or complaints. He was reported to have a large BM yesterday without melena noted by nursing. We will recheck his CBC today. Denies any headache, fever, neck pain, URI, sore throat, chest pain, palpitations, syncope, cough, shortness of breath, wheeze, dyspnea, abdominal pain, nausea/vomiting/diarrhea, dysuria, hematuria, or rash. General: A&O. Answers questions appropriately. Resting calmly, but easily arousable. Moving all extremities, with baseline strength 3-4+/5 b/l. Heart: RRR Lungs: CTAB Psych: Flat affect A/P: Vitals acceptable. Recheck cbc. Continue monitoring and med rec's per . Waiting on further rec's from Social work team. Normal diet DNR per recent hospitalist neftaly.
[2019-04-04 14:44] LABS: ABSOLUTE LYMPHOCYTES (AUTO) 1.3 10^3/uL (0.5-4.7); ABSOLUTE MONOCYTES (AUTO) 0.3 10^3/uL (0.1-1.4); ABSOLUTE NEUT (AUTO) 2.8 10^3/uL (1.7-8.2); BASOPHILS % (AUTO) 0.3 % (0-2); EOSINOPHILS % (AUTO) 0.6 % (0-6); HEMATOCRIT 35.7 % (37.9-51.0); HEMOGLOBIN 12.2 g/dL (13.5-17.0); LYMPHOCYTES % (AUTO) 28.8 % (13-45); MEAN CORPUSCULAR HEMOGLOBIN 33.2 pg (27.0-33.4); MEAN CORPUSCULAR VOLUME 98 fl (80-97); MONOCYTES % (AUTO) 6.2 % (3-13); PLATELET COUNT 167 10^3/uL (150-450); RED BLOOD COUNT 3.66 10^6/uL (4.35-5.55); RED CELL DISTRIBUTION WIDTH 13.5 % (11.5-14.0); SEGMENTED NEUTROPHILS % (AUTO) 64.1 % (42-78); TOTAL CELLS COUNTED % (AUTO) 100 %; WHITE BLOOD COUNT 4.4 10^3/uL (4.0-10.5)
[2019-04-04] MEDS ORDERED: HYDROXYZINE PAMOATE 25 MG CAPSULE PO ONE (21:26)
[2019-04-04] MEDS: MELATONIN 3 MG TABLET PO SCH (21:45)
[2019-04-05] MEDS: ERYTHROMYCIN 0.5% OPH OINTMENT 3.5 GM TUBE OU SCH ×5 (02:27→23:02)
[2019-04-05] MEDS: ACETAMINOPHEN 325 MG TABLET PO PRN ×2 (09:25→21:00)
[2019-04-05] MEDS: CARBIDOPA/LEVODOPA 10-100 MG TABLET PO SCH ×3 (09:25→21:02)
[2019-04-05] MEDS: ENOXAPARIN SODIUM INJ 80 MG/0.8 ML DISP.SYRIN SUBCUT SCH ×2 (09:28→21:02)
[2019-04-05] MEDS: DOCUSATE SODIUM 100 MG CAPSULE PO SCH (09:40)
--- NOTE | 2019-04-05 14:57 | ER Document Report ---
Doctor's Note Notes: 04/05/19 14:58 chart reviewed, This 73-year-old male with history of Parkinson's and did dementia presented to our emergency department many many days ago. Apparently he was swinging his walker around at the longterm and punching people. Patient does have a but she is very scared of him and does not want to tracy ng him back home. Patient has been resting quietly today with no distress. He is laying on specialty mattress comfortable watching TV. According to [place]ort planning manager he will be discharged to [facility] tomorrow. PHYSICAL EXAMINATION: GENERAL: Well-appearing non toxic looking HEAD: Atraumatic, normocephalic. EYES: extraocular movements intact, sclera anicteric, conjunctiva are normal. ENT: nares patent, . Moist mucous membranes. NECK: Normal range of motion, supple LUNGS: Respiratory rate even unlabored HEART: Regular rate ABDOMEN: No complaints of abdominal pain eating well EXTREMITIES: Normal range of motion, PSYCH: Normal mood, normal affect. Calm SKIN: Warm, Dry, normal turgor, no rashes or lesions noted 04/05/19 20:30 pt was calm and cooperative all day. Report given to Gus Coleman. LYDIA
[2019-04-05] MEDS: MELATONIN 3 MG TABLET PO SCH (21:02)
[2019-04-06] MEDS: CARBIDOPA/LEVODOPA 10-100 MG TABLET PO SCH ×3 (05:54→22:13)
[2019-04-06] MEDS: ERYTHROMYCIN 0.5% OPH OINTMENT 3.5 GM TUBE OU SCH ×3 (05:55→18:54)
[2019-04-06] MEDS: ENOXAPARIN SODIUM INJ 80 MG/0.8 ML DISP.SYRIN SUBCUT SCH ×2 (09:32→22:14)
[2019-04-06] MEDS: DOCUSATE SODIUM 100 MG CAPSULE PO SCH (09:39)
--- NOTE | 2019-04-06 10:56 | ER Document Report ---
Doctor's Note Notes: 04/06/19 10:54 I performed a morning round on this 73yo male who has been here for quite some time. He has no new concerns or complaints today. He has been eating/drinking/urinating and having normal BM's. Denies fever, sob, cp, abd pain, n/v/d. General: Answers questions appropriately. Resting comfortably at this time. Heart: RRR Lungs: CTAB Psych: Flat affect A/P: According to manager social services, pt may be getting discharged to [place] today. Continue monitoring and med rec's per MH. Normal diet
--- NOTE | 2019-04-06 12:00 | PDOC PROGRESS REPORT ---
Subjective Progress Note for:: 04/05/19 Subjective:: Per ED Provider note (02/16/19): 73-year-old male was brought in for severe agitation. He has a history of agitated dementia and Parkinson's dementia. He was swinging his walker around the shelter today and flailing and punching people. Patient has had this on several occasions before. He was so agitated he could not give PRN meds. EMS was activated. EMS gave the patient ketamine due to his severe agitation. The patient has awoke here and is been agreeable for us. Denies any complaints of chest pain or shortness of breath denies abdominal pain he is pleasantly demented at this time. Course: The patient has remained a social hold in the emergency department since 02/16/2019 due to placement issues at [facility]. He has been hemodynamically stable. Unfortunately, a few days ago the patient began complaining of left lower extremity pain and venous Doppler revealed a subacute to popliteal DVT. Hospitalist service was consulted for evaluation and medical management recommendations. 03/30/19: for medication review and recommendations. The patient has had no acute developments since he was last seen on 03/22/2019. He continues to refuse all medications other than his Sinemet, Lovenox, and melatonin. Spoke with discharge planning today; Jillian confirms that she was able to get in contact with the patient's and she is agreeable for admission to hospice services he is not inpatient hospice appropriate, however, this may assist with finding placement for long-term care. The patient was seen on afternoon rounds; was found resting in bed comfortably on room air. He was sleeping when I entered the room but woke easily when I said his name. He states that he is feeling well and has no questions or concerns at this time. He denies all symptoms of fever, chills, chest pain, shortness of breath, a bdominal pain, nausea vomiting and diarrhea. Per nursing, patient has no new concerns, no behavioral disturbances, will get out of bed for meals with assistance, and has a good appetite. No concerns per nursing. 04/05/19: Patient was seen on afternoon rounds. In bed comfortably on room air. His only question today is to again request to increase his Sinemet due to hand tremor. He is not noted to have a resting or intentional tremor. Nursing confirms the patient is able to complete ADLs and eat himself intermittently and that when he is not this is mostly attributed to the patient's attempt to engage nursing staff. Nursing notes, vital signs, laboratory evaluations have been reviewed. Current medications and order sets reviewed. Patient remained stable and appropriate for discharge per the ED and social work team. Reason For Visit: [id number] Physical Exam Vital Signs: Temp Pulse Resp BP Pulse Ox 97.2 F 77 15 107/51 L 93 04/06/19 06:00 04/06/19 06:00 04/06/19 06:00 04/06/19 06:00 04/06/19 06:00 General appearance: PRESENT: no acute distress, thin, well-developed, well- nourished Head exam: PRESENT: atraumatic, normocephalic Eye exam: PRESENT: conjunctiva pink, EOMI, PERRLA. ABSENT: scleral icterus Ear exam: PRESENT: normal external ear exam Mouth exam: PRESENT: moist, tongue midline Teeth exam: PRESENT: poor dentation Respiratory exam: PRESENT: clear to auscultation damon. ABSENT: rales, rhonchi, wheezes Cardiovascular exam: PRESENT: RRR. ABSENT: diastolic murmur, rubs, systolic murmur Vascular exam: PRESENT: normal capillary refill Extremities exam: PRESENT: full ROM. ABSENT: calf tenderness, clubbing, pedal edema Neurological exam: PRESENT: alert, awake, oriented to person, oriented to place, oriented to time, oriented to situation, CN II-XII grossly intact. ABSENT: motor sensory deficit Psychiatric exam: PRESENT: normal mood, unusual affect. ABSENT: homicidal ideation, suicidal ideation Skin exam: PRESENT: dry, intact, warm. ABSENT: cyanosis, rash Results Laboratory Results: 04/04/19 14:30 04/03/19 11:45 Impressions: Head CT 02/16/19 10:50 IMPRESSION: NORMAL BRAIN CT WITHOUT CONTRAST. EVIDENCE OF ACUTE STROKE: NO. Chest X-Ray 03/24/19 10:07 IMPRESSION: NO ACUTE RADIOGRAPHIC FINDING IN THE CHEST. Assessment and Plan - Diagnosis (1) DVT (deep venous thrombosis) Qualifiers: DVT location: lower extremity Affected thrombotic vein of extremity: popliteal Chronicity: unspecified Laterality: left Qualified Code(s): I82.432 - Acute embolism and thrombosis of left popliteal vein Is this a current diagnosis for this admission?: Yes Plan: Venous Doppler revealed subacute left popliteal DVT. He remains hemodynamically stable. Unfortunately, the patient is primarily bedbound due to his mentation, frequent refusal to participate with PT/ambulate, and social hold while in the emergency department over the last month. His DVT was further provoked by having been treated with Medroxyprogesterone for management of his hypersexual behaviors. While at [facility], would recommend utilizing full dose Lovenox to increase likelihood of patient compliance. Once discharged, he can be safely transitioned to Xarelto. Initial treatment with Xarelto is 15 mg twice daily x21 days (would subtract the number of days on Lovenox from this -currently on day #17 of treatment) followed by transition to 20 mg once daily. Previously discontinued Medroxyprogesterone. Non-narcotic analgesics as needed for discomfort. JARED hose. Out of bed for meals. Ambulate 3 times daily. Discussed with discharge planning; they have been in touch with the patient's who is agreeable to transition to hospice services. DNR placed. The patient remains medically stable for discharge from the hospitalist perspective. Discussed medications with discharge planning. If his accepting facility is willing to continue Lovenox, that may improve the patient's compliance. The patient could continue Lovenox 70 mg every 12 hours for the duration of treatment. If the facility cannot continue his subcutaneous injections, then change to Xarelto 15 mg twice daily through April 10 and then transition to 20 mg once daily. For a provoked DVT (bedrest while on hormone therapy) length of treatment should be 3 months with completion of therapy being June 22. (2) Anemia Qualifiers: Anemia type: unspecified type Qualified Code(s): D64.9 - Anemia, unspecified Is this a current diagnosis for this admission?: Yes Plan: Resolved; hemoglobin 13.4 on admission; no prior labs to compare to. Hemoglobin has trended up to 14.7 Anemia panel is normal. No evidence of bleeding. Possibly related to poor nutrition which certainly has improved while in the emergency department with nurse coaching dietary/p.o. intake. Continue regular diet with Boost TID at meals. No additional work-up or interventions required. Recommend routine monitoring by PCP (3) Hyperglycemia Is this a current diagnosis for this admission?: Yes Plan: Not clinically significant. Elevated glucose is incidental finding on random chemistries. A1c is 5.7%. TSH is normal. Continue regular diet. (4) Dementia Qualifiers: Dementia type: Parkinson's disease Dementia behavioral disturbance: with behavioral disturbance Qualified Code(s): G20 - Parkinson's disease; F02.81 - Dementia in other diseases classified elsewhere with behavioral disturbance Is this a current diagnosis for this admission?: Yes Plan: The patient has a long-standing history of Parkinson's dementia with behavioral disturbances. Has been followed by outpatient neuropsychiatry services. Currently in social hold in the emergency department awaiting long-term care placement. Psychiatric services were last consulted 02/16/2019. He was cleared from a psychiatric perspective at that time. Spoke with mental health services today; as the patient has the right to refuse medications and is now interested in pursuing hospice services, will discontinue all medications the patient has been routinely refusing. Continue supportive care. Discharge planning is consulted. (5) Conjunctivitis Qualifiers: Conjunctivitis type: acute Acute conjunctivitis type: unspecified Laterality: bilateral Qualified Code(s): H10.33 - Unspecified acute conjunct ivitis, bilateral Is this a current diagnosis for this admission?: Yes Plan: Patient has completed a 7-day course of erythromycin ointment - Plan Summary Summary: At this time, the patient is hemodynamically stable and does not require inpatient or observation status. While in the hospital, would recommend continuing full dose Lovenox to improve patient compliance with transition to Xarelto at discharge as described above. Have discontinued all medications patient routinely declines; none were c onsidered life sustaining. Recommend following up on Goals of Care; is reportedly interested in transitioning to Hospice Services. This may provide additional avenues for placement. He has no other acute or uncompensated chronic medical conditions at this time. The patient is medically stable for discharge from the hospitalist perspective. We will follow periodically; please contact for any acute issues or if we can be of any further assistance. - Time Time Spent with patient: 15-24 minutes Medications reviewed and adjusted accordingly: Yes Within: when bed available
[2019-04-06] MEDS: ACETAMINOPHEN 325 MG TABLET PO PRN ×2 (13:29→22:11)
[2019-04-06] MEDS: MELATONIN 3 MG TABLET PO SCH (22:13)
[2019-04-07] MEDS: ERYTHROMYCIN 0.5% OPH OINTMENT 3.5 GM TUBE OU SCH (00:19)
[2019-04-07] MEDS: CARBIDOPA/LEVODOPA 10-100 MG TABLET PO SCH ×3 (06:08→22:26)
[2019-04-07] MEDS: DOCUSATE SODIUM 100 MG CAPSULE PO SCH (10:03)
[2019-04-07] MEDS: ENOXAPARIN SODIUM INJ 80 MG/0.8 ML DISP.SYRIN SUBCUT SCH ×2 (10:03→22:41)
--- NOTE | 2019-04-07 10:28 | ER Document Report ---
Doctor's Note Notes: 04/07/19 10:29 I performed a morning round on this 73yo male who has been here for quite some time. He has no new concerns or complaints today. He has been eating/drinking/urinating and having normal BM's. The nurse over the past couple days has been doing well getting him up and out of the bed. He has gotten up and sat in a chair to eat TID and even walked to the bathroom yesterday. Denies fever, sob, cp, abd pain, n/v/d. General: Answers questions appropriately. Resting comfortably at this time. Heart: RRR Lungs: CTAB Psych: Flat affect A/P: Person [facility] has been contacted by myself yesterday and sounds promising for transfer. I relayed the fax number and information to our Park Keeper, Jillian, who will try to coordinate from here. Continue monitoring and med rec's per MH. Normal diet Up and moving TID
[2019-04-07] MEDS: ACETAMINOPHEN 325 MG TABLET PO PRN ×2 (13:01→22:42)
[2019-04-07] MEDS ORDERED: LACTULOSE SYRUP 20 GM/30 ML UDCUP PO ONE (19:50)
[2019-04-07] MEDS: MELATONIN 3 MG TABLET PO SCH (22:26)
[2019-04-08] MEDS: CARBIDOPA/LEVODOPA 10-100 MG TABLET PO SCH ×3 (06:07→22:07)
[2019-04-08] MEDS: ACETAMINOPHEN 325 MG TABLET PO PRN ×3 (06:08→22:07)
[2019-04-08] MEDS: DOCUSATE SODIUM 100 MG CAPSULE PO SCH (09:07)
[2019-04-08] MEDS: ENOXAPARIN SODIUM INJ 80 MG/0.8 ML DISP.SYRIN SUBCUT SCH ×2 (09:07→22:08)
--- NOTE | 2019-04-08 11:47 | ER Document Report ---
Doctor's Note Notes: 04/08/19 11:45 73 yr old is here for a social hold. He has no new concerns or complaints today. He has been eating/drinking/urinating and having normal BM's. Pt did walk around the white yesterday. pt ate breakfast without any issues. Denies fever, sob, cp, abd pain, n/v/d. General: Answers questions appropriately. Resting comfortably at this time. Heart: RRR Lungs: CTAB Psych: Flat affect A/P: Pt was denied transfer. social work is working on placement. Normal diet
--- NOTE | 2019-04-08 14:50 | RADIOLOGY REPORT (SQ) ---
EXAM DESCRIPTION: CT SOFT TISSUE NECK WITH COMPLETED DATE/TIME: 04/08/2019 2:29 pm REASON FOR STUDY: right lymphadenopathy R41.82 ALTERED MENTAL STATUS, UNSPECIFIED G20 PARKINSON'S DISEASE F02.81 DEMENTIA IN OTH DISEASES CLASSD ELSWHR W BEHAVIORAL D COMPARISON: CT cervical spine dated 01/16/2019 TECHNIQUE: Post IV contrasted scanning from skull base through lung apices with review of bone, soft tissue and lung windows. Reconstructed coronal and sagittal MPR images reviewed. All images stored on PACS. All CT scanners at this facility use dose modulation, iterative reconstruction, and/or weight based d osing when appropriate to reduce radiation dose to as low as reasonably achievable (ALARA). [facility]: Dose Right [facility]: CareDose [facility]: Dose Right [facility]: Teradose 4D [facility]: [employer] CONTRAST TYPE AND DOSE: contrast/concentration: Isovue 350.00 mg/ml; Total Contrast Delivered: 74.0 ml; Total Saline Delivered: 28.0 ml RENAL FUNCTION: BUN 25, creatinine 0.63 RADIATION DOSE: CT Rad equipment meets quality standard of care and radiation dose reduction techniq ues were employed. CTDIvol: 8.7 mGy. DLP: 241 mGy-cm. . LIMITATIONS: Artifact from metallic foreign body in the left aspect of the neck. FINDINGS: SKULL BASE: Intact. MAJOR SALIVARY GLANDS: No solid or cystic masses. No inflammatory changes. LYMPHADENOPATHY: No adenopathy. MUCOSAL MASSES OR ASYMMETRY: No mucosal masses or asymmetry. LARYNX/CORDS: No abnormal findings. VASCULAR STRUCTURES: The major vessels are patent. LUNG APICES: Clear. BONES: Intact. THYROID: Normal size. No masses. PARANASAL SINUSES: Clear. OTHER: No other significant finding. IMPRESSION: NO SIGNIFICANT FINDING IN THE SOFT TISSUES OF THE NECK. TECHNICAL DOCUMENTATION: JOB ID: [id number] Quality ID # [id number]: Final reports with documentation of one or more dose reduction techniques (e.g., Au tomated exposure control, adjustment of the mA and/or kV according to patient size, use of iterative reconstruction technique) 2010 [employer]- All Rights Reserved Reading location - IP/workstation name: [email or web address]
--- NOTE | 2019-04-08 16:22 | ER Document Report ---
Doctor's Note Notes: 04/08/19 16:21 Bedside RN, Tyesha, concerned about right lymphadenopathy in the cervical region she noticed when bathing patient complaining of sore throat. Rapid strep is negative, CT soft tissue neck with contrast was negative for any acute findings per radiology. We will continue to monitor. Vital signs stable. Patient remains afebrile. Patient able to tolerate p.o. food and liquids without any difficulty.
[2019-04-08] MEDS: MELATONIN 3 MG TABLET PO SCH (22:07)
[2019-04-09] MEDS: CARBIDOPA/LEVODOPA 10-100 MG TABLET PO SCH ×3 (06:10→21:09)
[2019-04-09] MEDS: ENOXAPARIN SODIUM INJ 80 MG/0.8 ML DISP.SYRIN SUBCUT SCH ×2 (09:45→21:09)
[2019-04-09] MEDS: DOCUSATE SODIUM 100 MG CAPSULE PO SCH (09:59)
[2019-04-09] MEDS: ACETAMINOPHEN 325 MG TABLET PO PRN (10:24)
--- NOTE | 2019-04-09 18:07 | ER Document Report ---
Doctor's Note Notes: 04/09/19 18:00 I performed a recheck on this 73yo male who is here for a social hold. He has no new concerns or complaints today. He has been eating/drinking/urinating and having normal BM's. He has been sitting in the chair to eat Denies fever, sob, cp, abd pain, n/v/d. General: Answers questions appropriately. Resting comfortably at this time. Heart: RRR Lungs: CTAB Psych: Flat affect A/P: Person [facility] has declined. Continue monitoring and med rec's per . Social work continuing search. Normal diet Up and moving TID
[2019-04-09] MEDS: MELATONIN 3 MG TABLET PO SCH (21:09)
[2019-04-10] MEDS: ACETAMINOPHEN 325 MG TABLET PO PRN ×2 (06:02→23:04)
[2019-04-10] MEDS: CARBIDOPA/LEVODOPA 10-100 MG TABLET PO SCH ×3 (06:02→23:30)
[2019-04-10] MEDS: DOCUSATE SODIUM 100 MG CAPSULE PO SCH (10:27)
[2019-04-10] MEDS: ENOXAPARIN SODIUM INJ 80 MG/0.8 ML DISP.SYRIN SUBCUT SCH ×2 (10:42→23:45)
[2019-04-10 12:06] LABS: ABSOLUTE MONOCYTES (AUTO) 0.2 10^3/uL (0.1-1.4); ABSOLUTE NEUT (AUTO) 2.9 10^3/uL (1.7-8.2); BASOPHILS % (AUTO) 0.2 % (0-2); EOSINOPHILS % (AUTO) 0.8 % (0-6); HEMATOCRIT 34.6 % (37.9-51.0); LYMPHOCYTES % (AUTO) 24.9 % (13-45); MEAN CORPUSCULAR HEMOGLOBIN 34.1 pg (27.0-33.4); MEAN CORPUSCULAR HGB CONC 34.6 g/dL (32.0-36.0); MEAN CORPUSCULAR VOLUME 98 fl (80-97); PLATELET COUNT 195 10^3/uL (150-450); RED BLOOD COUNT 3.52 10^6/uL (4.35-5.55); RED CELL DISTRIBUTION WIDTH 13.6 % (11.5-14.0); SEGMENTED NEUTROPHILS % (AUTO) 68.1 % (42-78); TOTAL CELLS COUNTED % (AUTO) 100 %; WHITE BLOOD COUNT 4.2 10^3/uL (4.0-10.5)
--- NOTE | 2019-04-10 12:46 | ER Document Report ---
Doctor's Note Notes: 04/10/19 12:44 I performed a recheck on this 73yo male who is here for a social hold. He has no new concerns or complaints today. He has been eating/drinking/urinating and having normal BM's. He has been sitting in the chair to eat this morning already. Denies fever, sob, cp, abd pain, n/v/d. General: Answers questions appropriately. Resting comfortably at this time. Heart: RRR Lungs: CTAB Psych: Flat affect A/P: Re-ordered for PT/OT. Daily CBC. Recheck BMP today. Continue monitoring and med rec's per MH. Social work continuing search. Normal diet Up and moving TID
[2019-04-10 13:34] LABS: ANION GAP 8 (5-19); BLOOD UREA NITROGEN 22 mg/dL (7-20); CALCIUM 9.3 mg/dL (8.4-10.2); CARBON DIOXIDE 27 mmol/L (22-30); CHLORIDE 105 mmol/L (98-107); GLUCOSE 101 mg/dL (75-110); POTASSIUM 4.3 mmol/L (3.6-5.0)
[2019-04-10] MEDS: MELATONIN 3 MG TABLET PO SCH (23:04)
[2019-04-11] MEDS: CARBIDOPA/LEVODOPA 10-100 MG TABLET PO SCH ×3 (06:19→21:33)
[2019-04-11 06:35] LABS: ABSOLUTE EOSINOPHILS # (AUTO) 0.1 10^3/uL (0.0-0.6); ABSOLUTE LYMPHOCYTES (AUTO) 1.8 10^3/uL (0.5-4.7); ABSOLUTE MONOCYTES (AUTO) 0.3 10^3/uL (0.1-1.4); ABSOLUTE NEUT (AUTO) 2.6 10^3/uL (1.7-8.2); BASOPHILS % (AUTO) 0.3 % (0-2); EOSINOPHILS % (AUTO) 1.2 % (0-6); HEMATOCRIT 37.6 % (37.9-51.0); HEMOGLOBIN 12.5 g/dL (13.5-17.0); LYMPHOCYTES % (AUTO) 37.1 % (13-45); MEAN CORPUSCULAR HEMOGLOBIN 33.6 pg (27.0-33.4); MEAN CORPUSCULAR HGB CONC 33.4 g/dL (32.0-36.0); MEAN CORPUSCULAR VOLUME 101 fl (80-97); MONOCYTES % (AUTO) 6.8 % (3-13); PLATELET COUNT 196 10^3/uL (150-450); RED BLOOD COUNT 3.73 10^6/uL (4.35-5.55); RED CELL DISTRIBUTION WIDTH 13.6 % (11.5-14.0); SEGMENTED NEUTROPHILS % (AUTO) 54.6 % (42-78); TOTAL CELLS COUNTED % (AUTO) 100 %; WHITE BLOOD COUNT 4.8 10^3/uL (4.0-10.5)
[2019-04-11] MEDS: ENOXAPARIN SODIUM INJ 80 MG/0.8 ML DISP.SYRIN SUBCUT SCH ×2 (10:59→23:58)
[2019-04-11] MEDS: DOCUSATE SODIUM 100 MG CAPSULE PO SCH (11:00)
--- NOTE | 2019-04-11 11:46 | ER Document Report ---
Doctor's Note Notes: 04/11/19 11:45 I have evaluated patient at bedside. He is voicing no complaints. I have evaluated patient's blood draw for today. His hemoglobin is actually up trending. Patient voices he has already gotten up and out of bed this morning. Currently awaiting placement. Patient is requesting I turn the TV back on and I turned the lights off when I leave the room.
[2019-04-11] MEDS: ACETAMINOPHEN 325 MG TABLET PO PRN (21:29)
[2019-04-11] MEDS: MELATONIN 3 MG TABLET PO SCH (21:33)
[2019-04-11 22:37] LABS: ABSOLUTE EOSINOPHILS # (AUTO) 0.1 10^3/uL (0.0-0.6); ABSOLUTE LYMPHOCYTES (AUTO) 1.6 10^3/uL (0.5-4.7); ABSOLUTE MONOCYTES (AUTO) 0.3 10^3/uL (0.1-1.4); BASOPHILS % (AUTO) 0.3 % (0-2); EOSINOPHILS % (AUTO) 1.2 % (0-6); HEMATOCRIT 34.5 % (37.9-51.0); MEAN CORPUSCULAR HEMOGLOBIN 34.2 pg (27.0-33.4); MEAN CORPUSCULAR HGB CONC 34.9 g/dL (32.0-36.0); MEAN CORPUSCULAR VOLUME 98 fl (80-97); PLATELET COUNT 213 10^3/uL (150-450); RED BLOOD COUNT 3.51 10^6/uL (4.35-5.55); RED CELL DISTRIBUTION WIDTH 13.6 % (11.5-14.0); SEGMENTED NEUTROPHILS % (AUTO) 60.5 % (42-78); TOTAL CELLS COUNTED % (AUTO) 100 %
[2019-04-12] MEDS: CARBIDOPA/LEVODOPA 10-100 MG TABLET PO SCH ×3 (07:02→21:52)
[2019-04-12 07:24] LABS: ABSOLUTE EOSINOPHILS # (AUTO) 0.1 10^3/uL (0.0-0.6); ABSOLUTE LYMPHOCYTES (AUTO) 1.3 10^3/uL (0.5-4.7); ABSOLUTE MONOCYTES (AUTO) 0.3 10^3/uL (0.1-1.4); ABSOLUTE NEUT (AUTO) 3.1 10^3/uL (1.7-8.2); BASOPHILS % (AUTO) 0.3 % (0-2); EOSINOPHILS % (AUTO) 1.1 % (0-6); HEMATOCRIT 34.3 % (37.9-51.0); HEMOGLOBIN 11.8 g/dL (13.5-17.0); LYMPHOCYTES % (AUTO) 27.1 % (13-45); MEAN CORPUSCULAR HEMOGLOBIN 33.8 pg (27.0-33.4); MEAN CORPUSCULAR HGB CONC 34.4 g/dL (32.0-36.0); MEAN CORPUSCULAR VOLUME 98 fl (80-97); MONOCYTES % (AUTO) 5.6 % (3-13); PLATELET COUNT 208 10^3/uL (150-450); RED BLOOD COUNT 3.49 10^6/uL (4.35-5.55); RED CELL DISTRIBUTION WIDTH 13.7 % (11.5-14.0); SEGMENTED NEUTROPHILS % (AUTO) 65.9 % (42-78); TOTAL CELLS COUNTED % (AUTO) 100 %; WHITE BLOOD COUNT 4.7 10^3/uL (4.0-10.5)
[2019-04-12] MEDS: ENOXAPARIN SODIUM INJ 80 MG/0.8 ML DISP.SYRIN SUBCUT SCH ×2 (10:22→21:54)
[2019-04-12] MEDS: DOCUSATE SODIUM 100 MG CAPSULE PO SCH (10:23)
--- NOTE | 2019-04-12 11:38 | ER Document Report ---
Doctor's Note Notes: 04/12/19 11:35 I have evaluated the patient at bedside. He continues without complaint. I evaluated patient's CBC, relatively unchanged. PT and OT have attempted to get the patient about this morning. He continues to refuse. They state they will not come down to the emergency department anymore as patient is refusing these therapies. Continue monitoring and med rec's per MH. Social work continuing search. Normal diet Up and moving TID
[2019-04-12] MEDS: ACETAMINOPHEN 325 MG TABLET PO PRN ×2 (12:13→21:52)
[2019-04-12 19:16] LABS: ABSOLUTE EOSINOPHILS # (AUTO) 0.1 10^3/uL (0.0-0.6); ABSOLUTE LYMPHOCYTES (AUTO) 1.7 10^3/uL (0.5-4.7); ABSOLUTE MONOCYTES (AUTO) 0.3 10^3/uL (0.1-1.4); ABSOLUTE NEUT (AUTO) 2.8 10^3/uL (1.7-8.2); BASOPHILS % (AUTO) 0.3 % (0-2); EOSINOPHILS % (AUTO) 1.2 % (0-6); HEMATOCRIT 36.6 % (37.9-51.0); HEMOGLOBIN 12.6 g/dL (13.5-17.0); LYMPHOCYTES % (AUTO) 35.1 % (13-45); MEAN CORPUSCULAR HEMOGLOBIN 33.8 pg (27.0-33.4); MEAN CORPUSCULAR HGB CONC 34.5 g/dL (32.0-36.0); MEAN CORPUSCULAR VOLUME 98 fl (80-97); MONOCYTES % (AUTO) 5.4 % (3-13); PLATELET COUNT 229 10^3/uL (150-450); RED BLOOD COUNT 3.74 10^6/uL (4.35-5.55); RED CELL DISTRIBUTION WIDTH 13.7 % (11.5-14.0); TOTAL CELLS COUNTED % (AUTO) 100 %; WHITE BLOOD COUNT 4.8 10^3/uL (4.0-10.5)
[2019-04-12] MEDS: MELATONIN 3 MG TABLET PO SCH (21:54)
[2019-04-13] MEDS: CARBIDOPA/LEVODOPA 10-100 MG TABLET PO SCH ×3 (05:13→21:21)
[2019-04-13] MEDS: ACETAMINOPHEN 325 MG TABLET PO PRN ×3 (05:15→22:29)
[2019-04-13 09:09] LABS: ABSOLUTE EOSINOPHILS # (AUTO) 0.1 10^3/uL (0.0-0.6); ABSOLUTE LYMPHOCYTES (AUTO) 1.2 10^3/uL (0.5-4.7); ABSOLUTE MONOCYTES (AUTO) 0.3 10^3/uL (0.1-1.4); BASOPHILS % (AUTO) 0.2 % (0-2); EOSINOPHILS % (AUTO) 1.2 % (0-6); HEMATOCRIT 33.9 % (37.9-51.0); HEMOGLOBIN 11.6 g/dL (13.5-17.0); LYMPHOCYTES % (AUTO) 25.7 % (13-45); MEAN CORPUSCULAR HEMOGLOBIN 33.7 pg (27.0-33.4); MEAN CORPUSCULAR HGB CONC 34.3 g/dL (32.0-36.0); MEAN CORPUSCULAR VOLUME 98 fl (80-97); MONOCYTES % (AUTO) 6.8 % (3-13); PLATELET COUNT 206 10^3/uL (150-450); RED BLOOD COUNT 3.45 10^6/uL (4.35-5.55); RED CELL DISTRIBUTION WIDTH 13.7 % (11.5-14.0); SEGMENTED NEUTROPHILS % (AUTO) 66.1 % (42-78); TOTAL CELLS COUNTED % (AUTO) 100 %; WHITE BLOOD COUNT 4.5 10^3/uL (4.0-10.5)
[2019-04-13] MEDS: ENOXAPARIN SODIUM INJ 80 MG/0.8 ML DISP.SYRIN SUBCUT SCH ×2 (09:16→21:21)
[2019-04-13] MEDS: DOCUSATE SODIUM 100 MG CAPSULE PO SCH (09:16)
--- NOTE | 2019-04-13 12:32 | ER Document Report ---
Doctor's Note Notes: 04/13/19 12:31 I have evaluated patient at bedside, he continues without complaints. Continues to decline PT OT. I have evaluated patient's laboratory results, they remained without acute change. Continue to discuss with patient he needs to get out of bed when nursing staff instructed him. Patient voices understanding. GENERAL: Alert, interacts well. No acute distress. LUNGS: Clear to auscultation bilaterally, no wheezes, rales, or rhonchi. No respiratory distress. HEART: Regular rate and rhythm. No murmur SKIN: Warm, dry, normal turgor. No rashes or lesions noted. Discussed case with social work, Mathieu Aguilar, still working on placement.
[2019-04-13 20:04] LABS: ABSOLUTE LYMPHOCYTES (AUTO) 1.5 10^3/uL (0.5-4.7); ABSOLUTE MONOCYTES (AUTO) 0.3 10^3/uL (0.1-1.4); ABSOLUTE NEUT (AUTO) 3.6 10^3/uL (1.7-8.2); BASOPHILS % (AUTO) 0.3 % (0-2); EOSINOPHILS % (AUTO) 0.9 % (0-6); HEMATOCRIT 35.8 % (37.9-51.0); HEMOGLOBIN 12.3 g/dL (13.5-17.0); LYMPHOCYTES % (AUTO) 27.9 % (13-45); MEAN CORPUSCULAR HEMOGLOBIN 33.6 pg (27.0-33.4); MEAN CORPUSCULAR HGB CONC 34.4 g/dL (32.0-36.0); MEAN CORPUSCULAR VOLUME 98 fl (80-97); MONOCYTES % (AUTO) 4.9 % (3-13); PLATELET COUNT 205 10^3/uL (150-450); RED BLOOD COUNT 3.66 10^6/uL (4.35-5.55); RED CELL DISTRIBUTION WIDTH 13.7 % (11.5-14.0); TOTAL CELLS COUNTED % (AUTO) 100 %; WHITE BLOOD COUNT 5.5 10^3/uL (4.0-10.5)
[2019-04-13] MEDS: MELATONIN 3 MG TABLET PO SCH (21:21)
[2019-04-14] MEDS: CARBIDOPA/LEVODOPA 10-100 MG TABLET PO SCH ×3 (05:56→21:39)
[2019-04-14 07:48] LABS: ABSOLUTE EOSINOPHILS # (AUTO) 0.1 10^3/uL (0.0-0.6); ABSOLUTE LYMPHOCYTES (AUTO) 1.3 10^3/uL (0.5-4.7); ABSOLUTE MONOCYTES (AUTO) 0.2 10^3/uL (0.1-1.4); ABSOLUTE NEUT (AUTO) 2.1 10^3/uL (1.7-8.2); BASOPHILS % (AUTO) 0.2 % (0-2); EOSINOPHILS % (AUTO) 1.8 % (0-6); HEMATOCRIT 35.1 % (37.9-51.0); HEMOGLOBIN 12.1 g/dL (13.5-17.0); MEAN CORPUSCULAR HEMOGLOBIN 33.9 pg (27.0-33.4); MEAN CORPUSCULAR HGB CONC 34.4 g/dL (32.0-36.0); MEAN CORPUSCULAR VOLUME 98 fl (80-97); MONOCYTES % (AUTO) 6.6 % (3-13); PLATELET COUNT 215 10^3/uL (150-450); RED BLOOD COUNT 3.56 10^6/uL (4.35-5.55); RED CELL DISTRIBUTION WIDTH 13.6 % (11.5-14.0); SEGMENTED NEUTROPHILS % (AUTO) 56.4 % (42-78); TOTAL CELLS COUNTED % (AUTO) 100 %; WHITE BLOOD COUNT 3.7 10^3/uL (4.0-10.5)
[2019-04-14] MEDS: DOCUSATE SODIUM 100 MG CAPSULE PO SCH (09:16)
[2019-04-14] MEDS: ENOXAPARIN SODIUM INJ 80 MG/0.8 ML DISP.SYRIN SUBCUT SCH ×2 (09:17→21:39)
--- NOTE | 2019-04-14 14:05 | ER Document Report ---
Doctor's Note Notes: 04/14/19 14:03 Chart reviewed patient rounded on. Patient sitting up in the chair eating lunch. Calm. Afterwards patient was wheeled around the ED in a wheelchair. PHYSICAL EXAMINATION: GENERAL: Well-appearing and in no acute distress HEAD: Atraumatic, normocephalic. EYES: extraocular movements intact, sclera anicteric, conjunctiva are normal. ENT: nares patent, s. Moist mucous membranes. NECK: Normal range of motion, supple LUNGS:RR even/unlabored HEART: Regular rate ABDOMEN: no c/o pain NEUROLOGICAL: Cranial nerves grossly intact. PSYCH: Normal mood, normal affect. SKIN: Warm, Dry, normal turgor, no rashes or lesions noted 04/14/19 20:09 Patient was calm all day no distress resting quietly. I contacted protective services social worker Mathieu for update on placement. She reports they are working on it. Report given to LYDIA Jj
[2019-04-14] MEDS: ACETAMINOPHEN 325 MG TABLET PO PRN (17:01)
[2019-04-14 20:48] LABS: ABSOLUTE EOSINOPHILS # (AUTO) 0.1 10^3/uL (0.0-0.6); ABSOLUTE LYMPHOCYTES (AUTO) 1.5 10^3/uL (0.5-4.7); ABSOLUTE MONOCYTES (AUTO) 0.3 10^3/uL (0.1-1.4); ABSOLUTE NEUT (AUTO) 3.2 10^3/uL (1.7-8.2); BASOPHILS % (AUTO) 0.3 % (0-2); EOSINOPHILS % (AUTO) 1.2 % (0-6); HEMATOCRIT 33.9 % (37.9-51.0); LYMPHOCYTES % (AUTO) 29.5 % (13-45); MEAN CORPUSCULAR HEMOGLOBIN 34.3 pg (27.0-33.4); MEAN CORPUSCULAR HGB CONC 35.3 g/dL (32.0-36.0); MEAN CORPUSCULAR VOLUME 97 fl (80-97); MONOCYTES % (AUTO) 5.9 % (3-13); PLATELET COUNT 230 10^3/uL (150-450); RED BLOOD COUNT 3.49 10^6/uL (4.35-5.55); RED CELL DISTRIBUTION WIDTH 13.9 % (11.5-14.0); SEGMENTED NEUTROPHILS % (AUTO) 63.1 % (42-78); TOTAL CELLS COUNTED % (AUTO) 100 %
[2019-04-14] MEDS: MELATONIN 3 MG TABLET PO SCH (21:38)
[2019-04-15] MEDS: CARBIDOPA/LEVODOPA 10-100 MG TABLET PO SCH ×3 (06:05→21:53)
[2019-04-15 06:24] LABS: ABSOLUTE LYMPHOCYTES (AUTO) 1.4 10^3/uL (0.5-4.7); ABSOLUTE MONOCYTES (AUTO) 0.3 10^3/uL (0.1-1.4); ABSOLUTE NEUT (AUTO) 3.4 10^3/uL (1.7-8.2); BASOPHILS % (AUTO) 0.2 % (0-2); EOSINOPHILS % (AUTO) 0.9 % (0-6); HEMATOCRIT 35.1 % (37.9-51.0); HEMOGLOBIN 12.2 g/dL (13.5-17.0); LYMPHOCYTES % (AUTO) 26.8 % (13-45); MEAN CORPUSCULAR HGB CONC 34.6 g/dL (32.0-36.0); MEAN CORPUSCULAR VOLUME 98 fl (80-97); MONOCYTES % (AUTO) 6.2 % (3-13); PLATELET COUNT 205 10^3/uL (150-450); RED BLOOD COUNT 3.57 10^6/uL (4.35-5.55); RED CELL DISTRIBUTION WIDTH 13.7 % (11.5-14.0); SEGMENTED NEUTROPHILS % (AUTO) 65.9 % (42-78); TOTAL CELLS COUNTED % (AUTO) 100 %; WHITE BLOOD COUNT 5.2 10^3/uL (4.0-10.5)
[2019-04-15] MEDS: DOCUSATE SODIUM 100 MG CAPSULE PO SCH (10:38)
[2019-04-15] MEDS: ENOXAPARIN SODIUM INJ 80 MG/0.8 ML DISP.SYRIN SUBCUT SCH ×2 (10:40→21:51)
--- NOTE | 2019-04-15 19:16 | ER Document Report ---
Doctor's Note Notes: 04/15/19 08:30 Chart reviewed patient rounded on. Patient sitting up in the chair eating breakfast. Calm. Nurse pointed out the patient has orders for CBC twice daily. This was started when the DVT was noted and he was started on Lovenox. I canceled the CBC twice daily. PHYSICAL EXAMINATION: GENERAL: Well-appearing and in no acute distress HEAD: Atraumatic, normocephalic. EYES: extraocular movements intact, sclera anicteric, conjunctiva are normal. ENT: nares patent. Moist mucous membranes. NECK: Normal range of motion, supple LUNGS:RR even/unlabored HEART: Regular rate ABDOMEN: no c/o pain PSYCH: Normal mood, normal affect. calm, not agressive SKIN: Warm, Dry, normal turgor, no rashes or lesions noted 04/15/19 20:09 Patient was calm all day. No further update on placement. 04/15/19 20:10 Report given to LYDIA Jj.
[2019-04-15] MEDS: ACETAMINOPHEN 325 MG TABLET PO PRN (21:51)
[2019-04-15] MEDS: MELATONIN 3 MG TABLET PO SCH (21:53)
[2019-04-16 04:31] LABS: ABSOLUTE EOSINOPHILS # (AUTO) 0.1 10^3/uL (0.0-0.6); ABSOLUTE LYMPHOCYTES (AUTO) 1.9 10^3/uL (0.5-4.7); ABSOLUTE MONOCYTES (AUTO) 0.3 10^3/uL (0.1-1.4); ABSOLUTE NEUT (AUTO) 2.6 10^3/uL (1.7-8.2); BASOPHILS % (AUTO) 0.3 % (0-2); EOSINOPHILS % (AUTO) 1.2 % (0-6); HEMATOCRIT 35.7 % (37.9-51.0); HEMOGLOBIN 12.2 g/dL (13.5-17.0); MEAN CORPUSCULAR HEMOGLOBIN 33.4 pg (27.0-33.4); MEAN CORPUSCULAR HGB CONC 34.1 g/dL (32.0-36.0); MEAN CORPUSCULAR VOLUME 98 fl (80-97); MONOCYTES % (AUTO) 6.6 % (3-13); PLATELET COUNT 220 10^3/uL (150-450); RED BLOOD COUNT 3.65 10^6/uL (4.35-5.55); SEGMENTED NEUTROPHILS % (AUTO) 53.9 % (42-78); TOTAL CELLS COUNTED % (AUTO) 100 %; WHITE BLOOD COUNT 4.9 10^3/uL (4.0-10.5)
[2019-04-16] MEDS: CARBIDOPA/LEVODOPA 10-100 MG TABLET PO SCH ×3 (06:08→21:05)
[2019-04-16] MEDS: DOCUSATE SODIUM 100 MG CAPSULE PO SCH (10:26)
[2019-04-16] MEDS: ENOXAPARIN SODIUM INJ 80 MG/0.8 ML DISP.SYRIN SUBCUT SCH ×2 (10:26→21:05)
[2019-04-16] MEDS: ACETAMINOPHEN 325 MG TABLET PO PRN ×2 (13:43→21:11)
--- NOTE | 2019-04-16 16:00 | ER Document Report ---
Doctor's Note Notes: 04/16/19 15:57 PHYSICAL EXAMINATION: GENERAL: Awake, alert and in no acute distress. HEAD: Atraumatic, normocephalic. EYES: sclera anicteric, conjunctiva are normal. ENT: nares patent. Moist mucous membranes. NECK: Normal range of motion, supple without lymphadenopathy LUNGS: CTAB and equal. No wheezes rales or rhonchi. HEART: Regular rate and rhythm without murmurs ABDOMEN: Soft, nontender, normal bowel sounds, no guarding. EXTREMITIES: Normal range of motion, no pitting edema. No cyanosis. NEUROLOGICAL: Cranial nerves grossly intact. Normal speech. Technical Support Manager strength equal bilaterally. Fine tremor noted to bilateral upper extremities PSYCH: Normal mood, normal affect. SKIN: Warm, Dry, normal turgor, no rashes or lesions noted Reviewed patient's diagnostic evaluation and nurse note. Nurse does state that patient has been up twice today to chair at bedside for his meals. Patient continues to refuse any physical therapy feeling that he does not needed as he can move his extremities. Patient is insistent that he would feel stronger if he had his dose of his medication that he was requesting. Patient denies any other new complaints. Patient awaiting placement at this time and is medically stable for transfer pending bed availability. Patient without any aggressive behavior at this time.
[2019-04-16] MEDS: MELATONIN 3 MG TABLET PO SCH (21:05)
[2019-04-17] MEDS: CARBIDOPA/LEVODOPA 10-100 MG TABLET PO SCH ×3 (06:12→21:42)
[2019-04-17] MEDS: ACETAMINOPHEN 325 MG TABLET PO PRN ×2 (06:12→21:43)
[2019-04-17 07:53] LABS: ABSOLUTE EOSINOPHILS # (AUTO) 0.1 10^3/uL (0.0-0.6); ABSOLUTE LYMPHOCYTES (AUTO) 1.4 10^3/uL (0.5-4.7); ABSOLUTE MONOCYTES (AUTO) 0.3 10^3/uL (0.1-1.4); ABSOLUTE NEUT (AUTO) 2.6 10^3/uL (1.7-8.2); BASOPHILS % (AUTO) 0.3 % (0-2); EOSINOPHILS % (AUTO) 1.4 % (0-6); HEMATOCRIT 34.9 % (37.9-51.0); HEMOGLOBIN 11.8 g/dL (13.5-17.0); LYMPHOCYTES % (AUTO) 31.3 % (13-45); MEAN CORPUSCULAR HEMOGLOBIN 33.4 pg (27.0-33.4); MEAN CORPUSCULAR HGB CONC 33.8 g/dL (32.0-36.0); MEAN CORPUSCULAR VOLUME 99 fl (80-97); MONOCYTES % (AUTO) 7.1 % (3-13); PLATELET COUNT 213 10^3/uL (150-450); RED BLOOD COUNT 3.54 10^6/uL (4.35-5.55); RED CELL DISTRIBUTION WIDTH 13.7 % (11.5-14.0); SEGMENTED NEUTROPHILS % (AUTO) 59.9 % (42-78); TOTAL CELLS COUNTED % (AUTO) 100 %; WHITE BLOOD COUNT 4.4 10^3/uL (4.0-10.5)
--- NOTE | 2019-04-17 09:33 | ER Document Report ---
Doctor's Note Notes: 04/17/19 09:31 Reviewed patient's diagnostic evaluation and nurse note. Nurse states patient out of bed to chair twice daily for meals. Patient again today insisting that if his carbidopa levodopa was increased to 15 mg he would be stronger. Patient denies any other new complaints. PHYSICAL EXAMINATION: GENERAL: Awake, alert and in no acute distress. HEAD: Atraumatic, normocephalic. EYES: sclera anicteric, conjunctiva are normal. ENT: nares patent. Moist mucous membranes. Halitosis noted NECK: Normal range of motion, supple without lymphadenopathy LUNGS: CTAB and equal. No wheezes rales or rhonchi. HEART: Regular rate and rhythm without murmurs ABDOMEN: Soft, nontender, normal bowel sounds, no guarding. EXTREMITIES: Normal range of motion, no pitting edema. No cyanosis. NEUROLOGICAL: Cranial nerves grossly intact. Normal speech. Electronic Assembler Group Leader strength equal bilaterally. Fine tremor noted to bilateral upper extremities PSYCH: Normal mood, normal affect. SKIN: Warm, Dry, normal turgor, no rashes or lesions noted PLAN: We will continue with current care plan. Chlorhexidine oral care added due to patient's halitosis. Patient awaiting placement at this time and is medically stable for transfer pending bed availability. Patient without any aggressive behavior at this time.
[2019-04-17] MEDS: ENOXAPARIN SODIUM INJ 80 MG/0.8 ML DISP.SYRIN SUBCUT SCH ×2 (11:03→21:43)
[2019-04-17] MEDS: DOCUSATE SODIUM 100 MG CAPSULE PO SCH (11:03)
[2019-04-17] MEDS: MELATONIN 3 MG TABLET PO SCH (21:42)
[2019-04-18] MEDS: CARBIDOPA/LEVODOPA 10-100 MG TABLET PO SCH ×3 (05:52→21:02)
[2019-04-18] MEDS: ACETAMINOPHEN 325 MG TABLET PO PRN ×3 (05:52→21:02)
[2019-04-18 08:25] LABS: ABSOLUTE EOSINOPHILS # (AUTO) 0.1 10^3/uL (0.0-0.6); ABSOLUTE LYMPHOCYTES (AUTO) 1.6 10^3/uL (0.5-4.7); ABSOLUTE MONOCYTES (AUTO) 0.3 10^3/uL (0.1-1.4); ABSOLUTE NEUT (AUTO) 2.5 10^3/uL (1.7-8.2); BASOPHILS % (AUTO) 0.4 % (0-2); EOSINOPHILS % (AUTO) 1.4 % (0-6); HEMATOCRIT 34.8 % (37.9-51.0); HEMOGLOBIN 11.8 g/dL (13.5-17.0); LYMPHOCYTES % (AUTO) 36.2 % (13-45); MEAN CORPUSCULAR HEMOGLOBIN 33.6 pg (27.0-33.4); MEAN CORPUSCULAR VOLUME 99 fl (80-97); MONOCYTES % (AUTO) 6.7 % (3-13); PLATELET COUNT 207 10^3/uL (150-450); RED BLOOD COUNT 3.53 10^6/uL (4.35-5.55); RED CELL DISTRIBUTION WIDTH 13.8 % (11.5-14.0); SEGMENTED NEUTROPHILS % (AUTO) 55.3 % (42-78); TOTAL CELLS COUNTED % (AUTO) 100 %; WHITE BLOOD COUNT 4.4 10^3/uL (4.0-10.5)
[2019-04-18] MEDS: DOCUSATE SODIUM 100 MG CAPSULE PO SCH (09:44)
[2019-04-18] MEDS: ENOXAPARIN SODIUM INJ 80 MG/0.8 ML DISP.SYRIN SUBCUT SCH ×2 (09:44→21:02)
--- NOTE | 2019-04-18 11:17 | ER Document Report ---
Doctor's Note Notes: 04/18/19 11:17 Morning rounds performed on patient. Patient presents with what appears to be an acute mental status change. He is obtunded and occasionally opens eyes to noxious stimulus. Patient does withdraw to pain in all of his extremities. Patient is not speaking. Patient's vital signs within normal limits, patient is breathing on his own and appears to be protecting his airway. Patient did eat his breakfast this morning and was noted to be somnolent but mental status has deteriorated in the interval time period. PHYSICAL EXAMINATION: Reviewed vital signs and charting by RN GENERAL: Obtunded. No acute distress. HEAD: Normocephalic, atraumatic. EYES: Pupils equal and round. ENT: Oral mucosa dry, tongue midline. NECK: Full range of motion. Trachea midline. LUNGS: Clear to auscultation bilaterally, no wheezes, rales, or rhonchi. No respiratory distress. HEART: Regular rate and rhythm. No murmur ABDOMEN: soft, non-tender. No distention. Bowel sounds present EXTREMITIES: Moves all 4 extremities spontaneously. No edema, No cyanosis. Significant exfoliation bilateral feet. NEURO: Eyes to noxious stimuli, non verbal, does not follow commands, withdraws to noxious stimuli x 4 extremities, GCS 6 SKIN: Warm, dry, No rashes or lesions noted. Labs obtained this a.m. all are within normal limits. PLAN: Obtain CT head without, urinalysis, serial neuro checks. 04/18/19 13:[address] head negative for any acute intracranial pathology, urinalysis negative. Patient became responsive and is back to baseline. Patient's feet were soaked and exfoliated. They are looking much better. Patient was out of bed to chair. Renewed patient's Sinemet as prescription .
[2019-04-18 12:20] LABS: APPEARANCE,URINE CLEAR; BILIRUBIN,URINE NEGATIVE (NEGATIVE); COLOR,URINE YELLOW; GLUCOSE, URINE NEGATIVE (NEGATIVE); KETONES,URINE NEGATIVE (NEGATIVE); LEUKOCYTE ESTERASE,URINE NEGATIVE (NEGATIVE); NITRITE,URINE NEGATIVE (NEGATIVE); PROTEIN,URINE NEGATIVE (NEGATIVE)
--- NOTE | 2019-04-18 12:37 | RADIOLOGY REPORT (SQ) ---
EXAM DESCRIPTION: CT HEAD WITHOUT COMPLETED DATE/TIME: 04/18/2019 12:16 pm REASON FOR STUDY: acute mental status change R41.82 ALTERED MENTAL STATUS, UNSPECIFIED I82.432 ACU TE EMBOLISM AND THROMBOSIS OF LEFT POPLITEAL VEIN G20 PARKINSON'S DISEASE COMPARISON: 02/16/2019 TECHNIQUE: Axial images acquired through the brain without intravenous contrast. Images reviewed wi th bone, brain and subdural windows. Additional sagittal and coronal reconstructions were generated. Images stored on PACS. All CT scanners at this facility use dose modulation, iterative reconstruction, and/or weight based d osing when appropriate to reduce radiation dose to as low as reasonably achievable (ALARA). [facility]: Dose Right [facility]: CareDose [facility]: Dose Right [facility]: Teradose 4D [facility]: Smart [employer] RADIATION DOSE: CT Rad equipment meets quality standard of care and radiation dose reduction techniq ues were employed. CTDIvol: 53.2 mGy. DLP: 1203 mGy-cm. mGy. LIMITATIONS: None. FINDINGS: VENTRICLES: Normal size and contour. CEREBRUM: No masses. No hemorrhage. No midline shift. No evidence for acute infarction. Normal gra y/white matter differentiation. No areas of low density in the white matter. CEREBELLUM: No masses. No hemorrhage. No alteration of density. No evidence for acute infarction. EXTRAAXIAL SPACES: No fluid collections. No masses. ORBITS AND GLOBE: No intra- or extraconal masses. Normal contour of globe without masses. CALVARIUM: No fracture. PARANASAL SINUSES: No fluid or mucosal thickening. SOFT TISSUES: No mass or hematoma. OTHER: Metallic foreign body in the neck. IMPRESSION: NORMAL BRAIN CT WITHOUT CONTRAST. EVIDENCE OF ACUTE STROKE: NO. COMMENT: Quality ID # [id number]: Final reports with documentation of one or more dose reduction techniques (e.g., Automated exposure control, adjustment of the mA and/or kV according to patient size, use of iterative reconstruction technique) TECHNICAL DOCUMENTATION: JOB ID: [id number] [employer]- All Rights Reserved Reading location - IP/workstation name: [email or web address]
[2019-04-18] MEDS: MELATONIN 3 MG TABLET PO SCH (21:02)
[2019-04-19] MEDS: CARBIDOPA/LEVODOPA 10-100 MG TABLET PO SCH ×3 (07:03→21:33)
[2019-04-19 08:26] LABS: ABSOLUTE EOSINOPHILS # (AUTO) 0.1 10^3/uL (0.0-0.6); ABSOLUTE LYMPHOCYTES (AUTO) 1.6 10^3/uL (0.5-4.7); ABSOLUTE MONOCYTES (AUTO) 0.3 10^3/uL (0.1-1.4); ABSOLUTE NEUT (AUTO) 2.3 10^3/uL (1.7-8.2); BASOPHILS % (AUTO) 0.3 % (0-2); EOSINOPHILS % (AUTO) 1.4 % (0-6); HEMOGLOBIN 11.9 g/dL (13.5-17.0); MEAN CORPUSCULAR HEMOGLOBIN 33.8 pg (27.0-33.4); MEAN CORPUSCULAR HGB CONC 34.1 g/dL (32.0-36.0); MEAN CORPUSCULAR VOLUME 99 fl (80-97); MONOCYTES % (AUTO) 6.4 % (3-13); PLATELET COUNT 207 10^3/uL (150-450); RED BLOOD COUNT 3.53 10^6/uL (4.35-5.55); RED CELL DISTRIBUTION WIDTH 13.8 % (11.5-14.0); SEGMENTED NEUTROPHILS % (AUTO) 54.9 % (42-78); TOTAL CELLS COUNTED % (AUTO) 100 %; WHITE BLOOD COUNT 4.2 10^3/uL (4.0-10.5)
--- NOTE | 2019-04-19 11:38 | ER Document Report ---
Doctor's Note Notes: 04/19/19 11:37 As the rounding provider this AM, I assessed the patient's labs, vitals, and records. No concerning findings this morning. Patient denies any acute complaints. I explained to the patient that he needs to be seen by physical therapy but he adamantly denied he tells me daily that his Sinemet dose should be 50 mg every 2 hours. I clarify that that is too frequent and then he mentions something about 4 times a day. Mallory Joyce NP, is going to round on the patient and provide a hospitalist progress note. We are going to try to get physical therapy reengaged. At this time no acute changes.
[2019-04-19] MEDS: DOCUSATE SODIUM 100 MG CAPSULE PO SCH (11:53)
[2019-04-19] MEDS: ENOXAPARIN SODIUM INJ 80 MG/0.8 ML DISP.SYRIN SUBCUT SCH ×2 (11:54→21:33)
[2019-04-19] MEDS: MELATONIN 3 MG TABLET PO SCH (21:32)
--- NOTE | 2019-04-19 21:55 | PDOC PROGRESS REPORT ---
Subjective Progress Note for:: 04/19/19 Subjective:: Per ED Provider note (02/16/19): 73-year-old male was brought in for severe agitation. He has a history of agitated dementia and Parkinson's dementia. He was swinging his walker around the [facility] today and flailing and punching people. Patient has had this on several occasions before. He was so agitated he could not give PRN meds. EMS was activated. EMS gave the patient ketamine due to his severe agitation. The patient has awoke here and is been agreeable for us. Denies any complaints of chest pain or shortness of breath denies abdominal pain he is pleasantly demented at this time. Course: The patient has remained a social hold in the emergency department since 02/16/2019 due to placement issues at [facility]. He has been hemodynamically stable. Unfortunately, a few days ago the patient began complaining of left lower extremity pain and venous Doppler revealed a subacute to popliteal DVT. Hospitalist service was consulted for evaluation and medical management recommendations. 03/30/19: for medication review and recommendations. The patient has had no acute developments since he was last seen on 03/22/2019. He continues to refuse all medications other than his Sinemet, Lovenox, and melatonin. Spoke with discharge planning today; Jillian confirms that she was able to get in contact with the patient's and she is agreeable for admission to hospice services he is not inpatient hospice appropriate, however, this may assist with finding placement for long-term care. The patient was seen on afternoon rounds; was found resting in bed comfortably on room air. He was sleeping when I entered the room but woke easily when I said his name. He states that he is feeling well and has no questions or concerns at this time. He denies all symptoms of fever, chills, chest pain, shortness of breath, a bdominal pain, nausea vomiting and diarrhea. Per nursing, patient has no new concerns, no behavioral disturbances, will get out of bed for meals with assistance, and has a good appetite. No concerns per nursing. 04/05/19: Patient was seen on afternoon rounds. In bed comfortably on room air. His only question today is to again request to increase his Sinemet due to hand tremor. He is not noted to have a resting or intentional tremor. Nursing confirms the patient is able to complete ADLs and eat himself intermittently and that when he is not this is mostly attributed to the patient's attempt to engage nursing staff. Nursing notes, vital signs, laboratory evaluations have been reviewed. Current medications and order sets reviewed. Patient remained stable and appropriate for discharge per the ED and social work team. 04/19/19: Patient was seen on afternoon rounds. He is found resting in bed comfortably on room air. He was sleeping soundly and did not wake when I see his name; I did not make further attempts with the patient today. I have observed the patient periodically since my last formal rounding while in the emergency department. He was seen yesterday, in a wheelchair being pushed through the hallways. He did make eye contact and smile and say hello when I greeted him. We do not have further discussion at that time. Per nursing, the patient remains intermittently engaged in activities of ADLs. The patient does seem to respond to specific nurses more consistently than nursing also reports with others. That he often declines, refuses, or reports that he cannot complete a task until staff and insisted that he do so at which time he is able to complete it primarily independently (most notably feeding himself, brushing teeth, getting up to recliner). There is a report frustration that physical therapy seems to sign off too quickly this way. I did discuss this with his ED provider as well today. We will ask PT/OT to make a more concerted effort to evaluate and treat this patient prior to signing off due to patient refusal as the patient clearly has some element of dementia, and associated behavioral symptoms. Reason For Visit: [id number] Physical Exam Vital Signs: Temp Pulse Resp BP Pulse Ox 98.1 F 72 18 108/58 L 97 04/19/19 09:48 04/19/19 09:48 04/19/19 09:48 04/19/19 09:48 04/19/19 09:48 General appearance: PRESENT: no acute distress, well-developed, well-nourished Head exam: PRESENT: atraumatic, normocephalic Eye exam: ABSENT: scleral icterus Ear exam: PRESENT: normal external ear exam Mouth exam: PRESENT: moist, tongue midline Respiratory exam: PRESENT: symmetrical, unlabored Vascular exam: PRESENT: normal capillary refill Extremities exam: ABSENT: pedal edema Neurological exam: PRESENT: other - Sleeping soundly Skin exam: PRESENT: dry, intact, warm. ABSENT: cyanosis, rash Results Laboratory Results: 04/19/19 07:58 04/10/19 11:46 04/19/19 07:58 WBC 4.2 RBC 3.53 L Hgb 11.9 L Hct 35.0 L MCV 99 H MCH 33.8 H MCHC 34.1 RDW 13.8 Plt Count 207 Seg Neutrophils % 54.9 Impressions: Chest X-Ray 03/24/19 10:07 IMPRESSION: NO ACUTE RADIOGRAPHIC FINDING IN THE CHEST. Soft Tissue Neck CT 04/08/19 13:54 IMPRESSION: NO SIGNIFICANT FINDING IN THE SOFT TISSUES OF THE NECK. Head CT 04/18/19 11:08 IMPRESSION: NORMAL BRAIN CT WITHOUT CONTRAST. EVIDENCE OF ACUTE STROKE: NO. Assessment and Plan - Diagnosis (1) DVT (deep venous thrombosis) Qualifiers: DVT location: lower extremity Affected thrombotic vein of extremity: popliteal Chronicity: unspecified Laterality: left Qualified Code(s): I82.432 - Acute embolism and thrombosis of left popliteal vein Is this a current diagnosis for this admission?: Yes Plan: Venous Doppler revealed subacute left popliteal DVT. He remains hemodynamically stable. Unfortunately, the patient is primarily bedbound due to his mentation, frequent refusal to participate with PT/ambulate, and social hold while in the emergency department over the last month. His DVT was further provoked by having been treated with Medroxyprogesterone for management of his hypersexual behaviors. While at [facility], would recommend utilizing full dose Lovenox to increase likelihood of patient compliance. Currently on day 30 of therapy. Once discharged, he can be safely transitioned to Xarelto 20 mg once daily for completion of 3 month course. Previously discontinued Medroxyprogesterone. Non-narcotic analgesics as needed for discomfort. JARED hose. Out of bed for meals. Ambulate 3 times daily. Discussed with discharge planning; they have been in touch with the patient's who is agreeable to transition to hospice services. DNR placed. The patient remains medically stable for discharge from the hospitalist perspective. Discussed medications with discharge planning. If his accepting facility is willing to continue Lovenox, that may improve the patient's compliance. The patient could continue Lovenox 70 mg every 12 hours for the duration of treatment. If the facility cannot continue his subcutaneous injections, then change to Xarelto 20 mg once daily. For a provoked DVT (bedrest while on hormone therapy) length of treatment should be 3 months with completion of therapy being June 22. (2) Anemia Qualifiers: Anemia type: unspecified type Qualified Code(s): D64.9 - Anemia, unspecified Is this a current diagnosis for this admission?: Yes Plan: Resolved; Hgb 11.9 Anemia panel is normal. No evidence of bleeding. Likely related to poor nutrition which certainly has improved while in the emergency department with nurse coaching dietary/p.o. intake. Continue regular diet with Boost TID at meals. No additional work-up or interventions required. Routine monitoring while on treatment dose Lovenox with periodic urinalysis, occult stools, and H&H. Recommend routine monitoring by PCP (3) Hyperglycemia Is this a current diagnosis for this admission?: Yes Plan: Not clinically significant. Elevated glucose is incidental finding on random chemistries. A1c is 5.7%. TSH is normal. Continue regular diet. (4) Dementia Qualifiers: Dementia type: Parkinson's disease Dementia behavioral disturbance: with behavioral disturbance Qualified Code(s): G20 - Parkinson's disease; F02.81 - Dementia in other diseases classified elsewhere with behavioral disturbance Is this a current diagnosis for this admission?: Yes Plan: The patient has a long-standing history of Parkinson's dementia with behavioral disturbances. Has been followed by outpatient neuropsychiatry services. Currently in social hold in the emergency department awaiting long-term care placement. Psychiatric services were last consulted 02/16/2019. He was cleared from a psychiatric perspective at that time. Spoke with mental health services; as the patient has the right to refuse medications and is now interested in pursuing hospice services, will discontinue all medications the patient has been routinely refusing. Continue supportive care. Understanding that these are staff/resource intensive recommendations: - Move the patient to a room with a window if at all possible. [place] strict lighting schedule with blinds open and room lights on from 8 AM until 2:30 PM, off from 2:30-3:30 for afternoon nap, and on again from 3:30 PM until 8 PM. - Get the patient out of bed to chair for every meal. If, for some reason this is not possible, then have him sit to the edge of the bed with his feet dangling (this will improve alertness/mentation, and core strength). Attempt to engage the patient in conversation during mealtime. - Give him multiple small "tasks" daily; walk in the white w/ staff, wheelchair ride w/ staff through department, folding of wash cloths, completing puzzle, etc. Lack of stimulation/challenges further worsens his debility secondary to enforced sedentary lifestyle. (These are typical practices utilized in memory care centers.) Discharge planning is consulted. (5) Conjunctivitis Qualifiers: Conjunctivitis type: acute Acute conjunctivitis type: unspecified Laterality: bilateral Qualified Code(s): H10.33 - Unspecified acute conjunctivitis, bilateral Is this a current diagnosis for this admission?: Yes Plan: Resolved. Patient has completed a 7-day course of erythromycin ointment (6) Debility Is this a current diagnosis for this admission?: Yes Plan: Secondary to prolonged ED stay with decreased mobility and stimulation in the setting of Parkinson's dementia. Recommendations as above. Additionally have asked PT/OT to make several attempts to work with patient prior to signing off. Appreciate their assistance greatly. - Plan Summary Summary: At this time, the patient is hemodynamically stable and does not require inpatient or observation status. While in the hospital, would recommend continuing full dose Lovenox to improve patient compliance with transition to Xarelto at discharge as described above. Have discontinued all medications patient routinely declines; none were considered life sustaining. Recommend following up on Goals of Care; is reportedly interested in transitioning to Hospice Services. This may provide additional avenues for placement. He has no other acute or uncompensated chronic medical conditions at this time. The patient is medically stable for discharge from the hospitalist perspective. We will follow periodically; please contact for any acute issues or if we can be of any further assistance. - Time Time Spent with patient: 25-34 minutes Medications reviewed and adjusted accordingly: Yes Within: when bed available
[2019-04-20] MEDS: ACETAMINOPHEN 325 MG TABLET PO PRN ×2 (03:46→22:17)
[2019-04-20] MEDS: CARBIDOPA/LEVODOPA 10-100 MG TABLET PO SCH ×3 (06:31→22:17)
[2019-04-20] MEDS: DOCUSATE SODIUM 100 MG CAPSULE PO SCH (10:24)
[2019-04-20] MEDS: ENOXAPARIN SODIUM INJ 80 MG/0.8 ML DISP.SYRIN SUBCUT SCH ×2 (10:24→21:51)
--- NOTE | 2019-04-20 14:08 | ER Document Report ---
Doctor's Note Notes: 04/20/19 14:07 I assessed the patient's labs, vitals, and records. No concerning findings this morning. Patient denies any acute complaints.Pt is in no distress at this time. General: A&Ox3. Answers questions appropriately. Heart: RRR Lungs: CTAB Psych: soft voice when speaking. A/P: Continue monitoring and rec's per MH. Normal diet Consider placement to hospice.
[2019-04-20] MEDS: MELATONIN 3 MG TABLET PO SCH (22:18)
[2019-04-21] MEDS: CARBIDOPA/LEVODOPA 10-100 MG TABLET PO SCH ×3 (07:25→22:14)
[2019-04-21] MEDS: ENOXAPARIN SODIUM INJ 80 MG/0.8 ML DISP.SYRIN SUBCUT SCH ×2 (09:30→22:13)
[2019-04-21] MEDS: DOCUSATE SODIUM 100 MG CAPSULE PO SCH (09:30)
[2019-04-21] MEDS ORDERED: TUBERCULIN,PURIF.PROT.DERIV. 5 TU/0.1 ML TEST 1 ML VIAL ID ONE ×2 (15:59→17:00)
[2019-04-21] MEDS: MELATONIN 3 MG TABLET PO SCH (22:13)
[2019-04-21] MEDS: ACETAMINOPHEN 325 MG TABLET PO PRN (22:14)
[2019-04-22] MEDS: CARBIDOPA/LEVODOPA 10-100 MG TABLET PO SCH ×3 (07:04→23:00)
[2019-04-22] MEDS: ENOXAPARIN SODIUM INJ 80 MG/0.8 ML DISP.SYRIN SUBCUT SCH ×2 (10:09→23:01)
[2019-04-22] MEDS: DOCUSATE SODIUM 100 MG CAPSULE PO SCH (10:09)
--- NOTE | 2019-04-22 13:18 | ER Document Report ---
Doctor's Note Notes: 04/22/19 13:15 06/16/18 15:57 PHYSICAL EXAMINATION: GENERAL: Awake, alert and in no acute distress. HEAD: Atraumatic, normocephalic. EYES: sclera anicteric, conjunctiva are normal. ENT: nares patent. Moist mucous membranes. NECK: Normal range of motion, supple without lymphadenopathy LUNGS: CTAB and equal. No wheezes rales or rhonchi. HEART: Regular rate and rhythm without murmurs ABDOMEN: Soft, nontender, normal bowel sounds, no guarding. EXTREMITIES: Normal range of motion, no pitting edema. No cyanosis. NEUROLOGICAL: Cranial nerves grossly intact. Normal speech. [employer] strength equal bilaterally. Fine tremor noted to bilateral upper extremities PSYCH: Normal mood, normal affect. SKIN: Warm, Dry, normal turgor, no rashes or lesions noted Reviewed patient's diagnostic evaluation and nurse note. Nurse does state that patient has been up twice today to chair at bedside for his meals. Patient denies any new complaints. Patient awaiting placement at this time and is medically stable for transfer pending bed availability. Patient without any aggressive behavior at this time. Looking to be transferred for to [facility] in [place], waiting on PPD results 04/22/19 13:17
[2019-04-22] MEDS: ACETAMINOPHEN 325 MG TABLET PO PRN ×2 (14:02→23:00)
[2019-04-22] MEDS: MELATONIN 3 MG TABLET PO SCH (23:01)
[2019-04-23] MEDS: CARBIDOPA/LEVODOPA 10-100 MG TABLET PO SCH (06:22)
[2019-04-23 06:31] VITALS: BP 108/63
--- NOTE | 2019-04-23 20:06 | ER Document Report ---
Doctor's Note Notes: 04/23/19 08:03 I was informed that transport was here at bedside. The patient will be transferred to [facility] via [facility]. I assessed the patient and he is stable for discharge. PHYSICAL EXAMINATION: GENERAL: Appears well, healthy, well-nourished, no acute distress. LUNGS: Equal breath sounds bilaterally and clear to auscultation. No wheezes rales or rhonchi. CARDIOVASCULAR: S1-S2, regular rate, regular rhythm. Radial pulses 2+, normal. ABDOMEN: Normoactive bowel sounds. Soft, nontender, no guarding, no rebound tenderness, and no masses palpated. PSYCH: Withdrawn, normal self.
== END 2019-04-23 08:09 | disposition other institution (70) ==
LOC: ER 10:27
DX: G20 Parkinson's disease (principal); F02.81 Dementia in other diseases classified elsewhere, unspecified severity, with behavioral disturbance; I82.432 Acute embolism and thrombosis of left popliteal vein; M79.605 Pain in left leg; M79.604 Pain in right leg; R45.1 Restlessness and agitation; R45.6 Violent behavior; R51 Headache; H10.33 Unspecified acute conjunctivitis, bilateral; D64.9 Anemia, unspecified; E11.65 Type 2 diabetes mellitus with hyperglycemia; Z66 Do not resuscitate; Z79.899 Other long term (current) drug therapy; Z75.1 Person awaiting admission to adequate facility elsewhere
CPT/HCPCS: 93005 ×2; 99285; 96372; 36415; 87070; 87880; 82962; 80307 ×4; 82607; 82728; 82746; 83540; 83550; 83690; 84443; 85025; 85027; 85045; 80048; 80053; 81001; 80164; 83036; 93970; 70450; 93010 ×2; J3490 ×4; A9270 ×202; J1650 ×31